=== PATIENT | male | born 1945 | race African-American/Black ===

== ENCOUNTER 2017-12-29 19:38 | Emergency (ER) | payer MEDICARE ==
[~2017-12-29] VITALS: Ht 190.5 cm; Wt 97.5 kg
[~2017-12-29 19:38] MED LIST: ALBUTEROL2.5 MG/3 M HHN; AMICAR500 MG PO; ASPIR-LOW81 MG ORAL; DOXYCYCLINE MO100 MG ORAL; DULERA 100 MCG/13 GM INH; GENVOYA TABLET1 EACH PO; HYDROCODON-ACE1 EA15 ORAL; KEFLEX500 MG ORAL; MECLIZINE HCL25 MG ORAL; NORCO 5-325 TA1 EACH ORAL; STRIBILD TABLE1 EACH PO; SYMBICORT 16010.2 G1 IH; VENTOLIN HFA18 GM INH
[2017-12-29] MEDS ORDERED: Sodium Chloride 500ML 500 ML IV ONE (20:07)
[2017-12-29 20:10] VITALS: BP 155/102
[2017-12-29] MEDS ORDERED: Meclizine 25mg tab ORAL ONE (20:15)
[2017-12-29 20:58] LABS: BASOPHILS % (AUTO) 1.6 % (0.0-2.0); EOSINOPHILS % (AUTO) 1.3 % (0.0-3.0); HEMATOCRIT 40.6 % (42.0-52.0); HEMOGLOBIN 13.8 G/DL (14.2-18.0); LYMPHOCYTES % (AUTO) 30.6 % (20.0-45.0); MEAN CORPUSCULAR VOLUME 87 FL (80-99); MONOCYTES % (AUTO) 15.2 % (1.0-10.0); NEUTROPHILS % (AUTO) 51.4 % (45.0-75.0); PLATELET COUNT 213 K/UL (150-450); RED BLOOD COUNT 4.67 M/UL (4.70-6.10); RED CELL DISTRIBUTION WIDTH 13.4 % (11.6-14.8); WHITE BLOOD COUNT 4.6 K/UL (4.8-10.8)
[2017-12-29 21:03] LABS: ANION GAP 3 mmol/L (5-15); BLOOD UREA NITROGEN 13 mg/dL (7-18); CALCIUM 9.1 MG/DL (8.5-10.1); CARBON DIOXIDE 35 MMOL/L (21-32); CHLORIDE 101 MMOL/L (98-107); CREATININE 1.1 MG/DL (0.55-1.30); POTASSIUM 3.5 MMOL/L (3.5-5.1); SODIUM 139 MMOL/L (136-145)
--- NOTE | 2017-12-29 21:10 | Diagnostic Imaging Report ---
EXAM: XR Chest, 1 View CLINICAL HISTORY: DIZZY TECHNIQUE: Frontal view of the chest. COMPARISON: No relevant prior studies available. FINDINGS: Lungs: Probable mild atelectasis at the lung bases. Nodules which are likely calcified are projected in the lungs. Pleural space: No plain film evidence for pneumothorax. The costophrenic angles are sharp. Heart: Unremarkable. No cardiomegaly. Mediastinum: Unremarkable. Bones/joints: Unremarkable. IMPRESSION: Probable mild atelectasis at the lung bases.
[2017-12-29 21:18] LABS: ALANINE AMINOTRANSFERASE 32 U/L (12-78); ALBUMIN 3.4 G/DL (3.4-5.0); ALBUMIN/GLOBULIN RATIO 0.9 (1.0-2.7); ALKALINE PHOSPHATASE 43 U/L (46-116); ASPARTATE AMINO TRANSFERASE 21 U/L (15-37); BILIRUBIN,TOTAL 0.4 MG/DL (0.2-1.0); CKMB 2.3 NG/ML (0.0-3.6); CREATINE KINASE 178 U/L (26-308)
--- NOTE | 2017-12-29 22:04 | Diagnostic Imaging Report ---
EXAM: CT Head Without Intravenous Contrast CLINICAL HISTORY: DIZZY, vertigo TECHNIQUE: Axial computed tomography images of the head/brain without intravenous contrast. CTDI is 0.15, 70.38 mGy and DLP is 1379 mGy-cm. One or more of the following dose reduction techniques were used: automated exposure control, adjustment of the mA and/or kV according to patient size, use of iterative reconstruction technique. COMPARISON: No relevant prior studies available. FINDINGS: Brain: Areas of decreased density in the periventricular white matter which are nonspecific but are likely related to small vessel ischemic changes. Cerebral atrophy. No hemorrhage. Ventricles: Unremarkable. No ventriculomegaly. Bones/joints: Unremarkable. No acute fracture. Soft tissues: Unremarkable. Sinuses: Focal areas of mild mucosal thickening in the paranasal sinuses. Mastoid air cells: Unremarkable as visualized. No mastoid effusion. IMPRESSION: No CT evidence for acute intracranial abnormality. Cerebral atrophy with probable small vessel ischemic changes in the periventricular white matter.
[2017-12-29] MEDS ORDERED: MECLIZINE HCL25 MG ORAL (22:18)
[2017-12-29] MEDS ORDERED: ONDANSETRON ODT4 MG BC (22:18)
[2017-12-29 22:20] VITALS: BP 148/97
--- NOTE | 2017-12-29 22:20 | Emergency Room Report ---
History of Present Illness General Chief Complaint: Hypertension Source: Patient Present Illness HPI 72-year-old male presents ED for evaluation. Patient complaining of dizziness with high blood pressure 1 day. States he feels room spinning sensation. Denies any photophobia or blurry vision. states vomiting 1. Denies any headache. Denies any chest pain or shortness of breath. States he is compliant with his blood pressure medications. Computer Hardware Developer is Dr. Wilks. No other aggravating or relieving factors. Denies any other associated symptoms Allergies: Coded Allergies: No Known Allergies (Unverified , 09/11/17) Patient History Past Medical History: HTN Past Surgical History: none Pertinent Family History: none Social History: Denies: smoking, alcohol use, drug use Immunizations: UTD Reviewed Nursing Documentation: PMH: Agreed; PSxH: Agreed Nursing Documentation-PMH Past Medical History: No History, Except For Hx Cardiac Problems: No - HIV+ Hx Hypertension: Yes Hx Asthma: Yes - Bronchitis Review of Systems All Other Systems: negative except mentioned in HPI Physical Exam Vital Signs Date Time Temp Pulse Resp B/P (MAP) Pulse Ox O2 Delivery O2 Flow Rate FiO2 12/29/17 19:42 98.2 84 16 155/102 97 Room Air 98.2 Sp02 EP Interpretation: reviewed, normal General Appearance: no apparent distress, alert, GCS 15, non-toxic Head: normocephalic, atraumatic Eyes: bilateral eye normal inspection, bilateral eye PERRL ENT: hearing grossly normal, normal pharynx, no angioedema, normal voice Neck: full range of motion, supple/symm/no masses Respiratory: chest non-tender, lungs clear, normal breath sounds, speaking full sentences Cardiovascular #1: regular rate, rhythm, no edema Cardiovascular #2: 2+ carotid (R), 2+ carotid (L), 2+ radial (R), 2+ radial (L) , 2+ dorsalis pedis (R), 2+ dorsalis pedis (L) Gastrointestinal: normal bowel sounds, non tender, soft, non-distended, no guarding, no rebound Rectal: deferred Genitourinary: normal inspection, no CVA tenderness Musculoskeletal: back normal, gait/station normal, normal range of motion, non- tender Neurologic: alert, oriented x3, responsive, casino attendant III-XII nml as tested, motor strength/tone normal, sensory intact, cerebellar normal, normal gait, speech normal Psychiatric: judgement/insight normal, memory normal, mood/affect normal, no suicidal/homicidal ideation Reflexes: 3+ bicep (R), 3+ bicep (L), 3+ tricep (R), 3+ tricep (L), 3+ knee (R) , 3+ knee (L) Skin: normal color, no rash, warm/dry, well hydrated Lymphatic: no adenopathy Medical Decision Making Diagnostic Impression: Primary Impression: Vertigo Additional Impression: Hypertension Qualified Codes: I10 - Essential (primary) hypertension ER Course Hospital Course 72-year-old male presents ED complaining of dizziness, blood pressure elevated Differential diagnoses include: arrythmia, dehydration, intracranial bleed, seizure Clinical course Patient placed on stretcher. on satellite project site monitor. After initial history and physical I ordered labs, EKG, chest Xray, IVFs, CT Brain, meclizine, zofran labs reviewed- no leukocytosis, Hb/Hct stable, electrolytes ok, troponins negative CT Brain - unremarkable Chest x-ray- no acute process EKG - NSR, no acute ischemic changes interpreted by me On reassessment patient feels better. Symptoms resolved. Discussed findings with Dr. Wilks. UA negative workup he agrees the patient can be safely discharged to home and he will see patient in his office on Sunday and agrees with plan I. I feel this is a highly complex case requiring extensive working including EKG/Rhythm strip, Xray/CT/US, Blood/urine lab work, repeat exams while in ED, and administration of strong opiates/narcotics for pain control, admission to hospital or close patient follow up. Diagnosis - vertigo, hypertension Stable and discharged to home with Rx meclizine, zofran. Followup with PMD. Return to ED if symptoms recur or worsen Labs Test 12/29/17 20:15 White Blood Count 4.6 K/UL (4.8-10.8) Red Blood Count 4.67 M/UL (4.70-6.10) Hemoglobin 13.8 G/DL (14.2-18.0) Hematocrit 40.6 % (42.0-52.0) Mean Corpuscular Volume 87 FL (80-99) Mean Corpuscular Hemoglobin 29.5 PG (27.0-31.0) Mean Corpuscular Hemoglobin Concent 33.9 G/DL (32.0-36.0) Red Cell Distribution Width 13.4 % (11.6-14.8) Platelet Count 213 K/UL (150-450) Mean Platelet Volume 7.1 FL (6.5-10.1) Neutrophils (%) (Auto) 51.4 % (45.0-75.0) Lymphocytes (%) (Auto) 30.6 % (20.0-45.0) Monocytes (%) (Auto) 15.2 % (1.0-10.0) Eosinophils (%) (Auto) 1.3 % (0.0-3.0) Basophils (%) (Auto) 1.6 % (0.0-2.0) Sodium Level 139 MMOL/L (136-145) Potassium Level 3.5 MMOL/L (3.5-5.1) Chloride Level 101 MMOL/L (98-107) Carbon Dioxide Level 35 MMOL/L (21-32) Anion Gap 3 mmol/L (5-15) Blood Urea Nitrogen 13 mg/dL (7-18) Creatinine 1.1 MG/DL (0.55-1.30) Estimat Glomerular Filtration Rate mL/min (>60) Glucose Level 100 MG/DL (74-106) Calcium Level 9.1 MG/DL (8.5-10.1) Total Bilirubin 0.4 MG/DL (0.2-1.0) Aspartate Amino Transf (AST/SGOT) 21 U/L (15-37) Alanine Aminotransferase (ALT/SGPT) 32 U/L (12-78) Alkaline Phosphatase 43 U/L (46-116) Total Creatine Kinase 178 U/L (26-308) Creatine Kinase MB 2.3 NG/ML (0.0-3.6) Creatine Kinase MB Relative Index 1.2 Troponin I 0.002 ng/mL (0.000-0.056) Pro-B-Type Natriuretic Peptide 50 pg/mL (0-125) Total Protein 7.1 G/DL (6.4-8.2) Albumin 3.4 G/DL (3.4-5.0) Globulin 3.7 g/dL Albumin/Globulin Ratio 0.9 (1.0-2.7) EKG Diagnostic Results Rate: normal Rhythm: NSR ST Segments: no acute changes ASA given to the pt in ED: No Rhythm Strip Diag. Results EP Interpretation: yes Rhythm: NSR, no PVC's, no ectopy Chest X-Ray Diagnostic Results Chest X-Ray Diagnostic Results : Chest X-Ray Ordered: Yes # of Views/Limited/Complete: 1 View Indication: Other - dizziness EP Interpretation: Yes Interpretation: no consolidation, no effusion, no pneumothorax, no acute cardiopulmonary disease Impression: No acute disease Electronically Signed by: Electronically signed by Russ Peter MD CT/MRI/US Diagnostic Results CT/MRI/US Diagnostic Results : Imaging Test Ordered: CT Head Impression no acute process Last Vital Signs Date Time Temp Pulse Resp B/P (MAP) Pulse Ox O2 Delivery O2 Flow Rate FiO2 12/29/17 20:10 98.2 84 16 155/102 97 Room Air 98.2 Status: improved Disposition: HOME, SELF-CARE Condition: Stable Scripts Ondansetron Odt* (ZOFRAN ODT*) 4 Mg Tab.rapdis 4 MG BC EVERY 6 HOURS PRN for Nausea & Vomiting, #20 TAB 0 Refills Prov: Russ Peter MD 12/29/17 Meclizine Hcl* (MECLIZINE*) 25 Mg Tablet 25 MG ORAL THREE TIMES A DAY, #20 TAB Prov: Russ Peter MD 12/29/17 Patient Instructions: Vertigo, [id number] Additional Instructions: followup with Dr Wilks in his office Sunday (12/31/17) between 1-2pm Russ Peter MD Dec 29, 2017 22:20
[2017-12-29 22:25] VITALS: BP 148/97
--- NOTE | 2017-12-30 16:43 | Cardiology Report ---
APPROVED REPORT EKG Measurement Heart [id number] Normal sinus rhythm Left axis deviation Left ventricular hypertrophy with QRS widening Junctional ST depression, probably normal Abnormal ECG
== END 2017-12-29 22:31 | disposition home or self-care (01) ==
LOC: EMR 20:15 → EDBD 20:15 → EMR 22:31
DX: R42 Dizziness and giddiness (principal); I10 Essential (primary) hypertension
CPT/HCPCS: 36415; 70450; 71045; 80053; 82550; 82553; 83880; 84484; 85025; 93005; 96374; 96375; 99284

== ENCOUNTER 2018-03-18 12:40 | Inpatient (IN) | payer MEDICARE ==
[~2018-03-18] VITALS: Ht 188 cm; Wt 120.7 kg
[~2018-03-18 12:40] MED LIST changes: +ONDANSETRON ODT4 MG BC
[2018-03-18] MEDS ORDERED: Sodium Chloride 500ML 500 ML IV ONE (13:06)
[2018-03-18 13:10] VITALS: BP 136/84
[2018-03-18] MEDS ORDERED: Solu-MEDROL 125mg Inj IVP ONE (13:15)
[2018-03-18] MEDS: Albuterol ud Inhalation HHN SCH ×3 (13:25→13:47)
[2018-03-18] MEDS: Ipratropium 0.02% Inh Soln 2.5ml UD HHN SCH ×3 (13:25→13:47)
[2018-03-18 13:49] LABS: BASOPHILS % (AUTO) 0.7 % (0.0-2.0); EOSINOPHILS % (AUTO) 0.4 % (0.0-3.0); HEMATOCRIT 33.4 % (42.0-52.0); HEMOGLOBIN 11.2 G/DL (14.2-18.0); LYMPHOCYTES % (AUTO) 6.7 % (20.0-45.0); MEAN CORPUSCULAR VOLUME 90 FL (80-99); MONOCYTES % (AUTO) 11.9 % (1.0-10.0); NEUTROPHILS % (AUTO) 80.3 % (45.0-75.0); PLATELET COUNT 171 K/UL (150-450); RED BLOOD COUNT 3.73 M/UL (4.70-6.10); RED CELL DISTRIBUTION WIDTH 13.6 % (11.6-14.8)
[2018-03-18 13:56] LABS: ANION GAP 7 mmol/L (5-15); BLOOD UREA NITROGEN 17 mg/dL (7-18); CALCIUM 8.8 MG/DL (8.5-10.1); CARBON DIOXIDE 28 MMOL/L (21-32); CHLORIDE 104 MMOL/L (98-107); CREATININE 1.5 MG/DL (0.55-1.30); POTASSIUM 4.2 MMOL/L (3.5-5.1); SODIUM 139 MMOL/L (136-145)
[2018-03-18 14:06] LABS: ALANINE AMINOTRANSFERASE 23 U/L (12-78); ALBUMIN 2.2 G/DL (3.4-5.0); ALBUMIN/GLOBULIN RATIO 0.5 (1.0-2.7); ALKALINE PHOSPHATASE 51 U/L (46-116); ASPARTATE AMINO TRANSFERASE 21 U/L (15-37); BILIRUBIN,TOTAL 0.5 MG/DL (0.2-1.0)
[2018-03-18] MEDS ORDERED: cefTRIAXone 1 GM in NS 55 ML IV SCH (14:30)
[2018-03-18] MEDS ORDERED: Azithromycin 500 MG in NS 275 ML IV SCH (14:30)
[2018-03-18] MEDS ORDERED: LOSARTAN POTASS50 MG ORAL (14:31)
[2018-03-18] MEDS ORDERED: PANTOPRAZOLE SO40 MG ORAL (14:31)
[2018-03-18] MEDS ORDERED: ELIQUIS5 MG PO (14:31)
[2018-03-18] MEDS ORDERED: TERBINAFINE HC250 MG PO (14:33)
[2018-03-18] MEDS ORDERED: ZANTAC150 MG ORAL ×2 (14:33→17:36)
[2018-03-18] MEDS ORDERED: GENVOYA TABLET1 EACH PO (14:33)
--- NOTE | 2018-03-18 14:39 | Diagnostic Imaging Report ---
Indication: Chest pain Technique: One view of the chest Comparison: 12/29/2017 Findings: Interim development of reticular infiltrate at the left lung base. The right lung, bilateral pleural spaces are clear. Extensive scattered calcified nodules are seen throughout both lungs. The heart size is upper limits of normal. Impression: Left basilar reticular infiltrate, likely pneumonia Evidence old granulomatous disease
[2018-03-18 15:46] LABS: APPEARANCE,URINE CLEAR; BILIRUBIN, URINE NEGATIVE (NEGATIVE); GLUCOSE, URINE (UA) NEGATIVE (NEGATIVE); KETONES,URINE NEGATIVE (NEGATIVE); LEUKOCYTE ESTERASE ,URINE 1+ (NEGATIVE); NITRITE,URINE NEGATIVE (NEGATIVE); PH,URINE 6 (4.5-8.0); PROTEIN,URINE 3+ (NEGATIVE); UROBILINOGEN,URINE 4 MG/DL (0.0-1.0)
[2018-03-18 15:47] LABS: COLOR,URINE YELLOW
--- NOTE | 2018-03-18 16:49 | Emergency Room Report ---
History of Present Illness General Chief Complaint: Dyspnea/Respdistress Source: Patient, Medical Record Present Illness HPI 73-year-old male presents ED complaining of shortness of breath 5 days. Notes cough and wheezing. History of asthma. Cough is productive with yellowish phlegm. Denies fevers or chills. Denies chest pain. Patient also states his blood pressure has been high recently. Systolic in the 190s. History of hypertension and states he is compliant with his medications. Referred by Dr. Wilks to ER for evaluation. And ice headache blurry vision nausea or vomiting. No other aggravating relieving factors. Denies any other associated symptoms Allergies: Coded Allergies: No Known Allergies (Unverified , 09/11/17) Patient History Past Medical History: HTN, asthma Past Surgical History: none Pertinent Family History: none Social History: Denies: smoking, alcohol use, drug use Immunizations: UTD Reviewed Nursing Documentation: PMH: Agreed; PSxH: Agreed Nursing Documentation-PMH Past Medical History: No History, Except For Hx Cardiac Problems: No - HIV+ Hx Hypertension: Yes Hx Asthma: Yes - Bronchitis Review of Systems All Other Systems: negative except mentioned in HPI Physical Exam Vital Signs Date Time Temp Pulse Resp B/P (MAP) Pulse Ox O2 Delivery O2 Flow Rate FiO2 03/18/18 12:47 98.5 108 24 152/85 90 Room Air 98.4 03/18/18 13:25 21 Sp02 EP Interpretation: reviewed, normal General Appearance: no apparent distress, alert, GCS 15, non-toxic Head: normocephalic, atraumatic Eyes: bilateral eye normal inspection, bilateral eye PERRL ENT: hearing grossly normal, normal pharynx, no angioedema, normal voice Neck: full range of motion, supple/symm/no masses Respiratory: chest non-tender, accessory muscle use, speaking full sentences, wheezing Cardiovascular #1: regular rate, rhythm, no edema Cardiovascular #2: 2+ carotid (R), 2+ carotid (L), 2+ radial (R), 2+ radial (L) , 2+ dorsalis pedis (R), 2+ dorsalis pedis (L) Gastrointestinal: normal bowel sounds, non tender, soft, non-distended, no guarding, no rebound Rectal: deferred Genitourinary: normal inspection, no CVA tenderness Musculoskeletal: back normal, gait/station normal, normal range of motion, non- tender Neurologic: alert, oriented x3, responsive, motor strength/tone normal, sensory intact, speech normal Psychiatric: judgement/insight normal, memory normal, mood/affect normal, no suicidal/homicidal ideation Reflexes: 3+ bicep (R), 3+ bicep (L), 3+ tricep (R), 3+ tricep (L), 3+ knee (R) , 3+ knee (L) Skin: normal color, no rash, warm/dry, well hydrated Lymphatic: no adenopathy Medical Decision Making Diagnostic Impression: Primary Impression: Pneumonia Qualified Codes: J18.1 - Lobar pneumonia, unspecified organism Additional Impression: Hypertension Qualified Codes: I10 - Essential (primary) hypertension ER Course Hospital Course 73 yo M presents to ED c/o SOB. BP high Differential diagnoses include: Pneumonia, CHF exacerbation, pneumothorax, fluid overload Clinical course Patient placed on stretcher. On court recording monitor. After initial history and physical, I ordered nebulizer treatments. I ordered labs, IV fluids, EKG, chest x-ray, blood cultures, UA. Labs -no leukocytosis noted, hemoglobin/hematocrit stable, electrolytes okay, lactate okay troponins negative CXR - LLL infiltrate EKG - NSR, no acute ischemic changes interpreted by me antibiotics given. BP in the 150s systolic now. No indication for emergent treatment Case discussed with Dr. Wilks and he agreed to the patient to his service for further care and support I feel this is a highly complex case requiring extensive working including EKG/ Rhythm strip, Xray/CT/US, Blood/urine lab work, repeat exams while in ED, and administration of strong opiates/narcotics for pain control, admission to hospital or close patient follow up. Diagnosis - pneumonia, hypertension Patient admitted to floor in serious condition Labs Test 03/18/18 13:20 03/18/18 14:30 03/18/18 15:35 White Blood Count 9.0 K/UL (4.8-10.8) Red Blood Count 3.73 M/UL (4.70-6.10) Hemoglobin 11.2 G/DL (14.2-18.0) Hematocrit 33.4 % (42.0-52.0) Mean Corpuscular Volume 90 FL (80-99) Mean Corpuscular Hemoglobin 29.9 PG (27.0-31.0) Mean Corpuscular Hemoglobin Concent 33.4 G/DL (32.0-36.0) Red Cell Distribution Width 13.6 % (11.6-14.8) Platelet Count 171 K/UL (150-450) Mean Platelet Volume 7.5 FL (6.5-10.1) Neutrophils (%) (Auto) 80.3 % (45.0-75.0) Lymphocytes (%) (Auto) 6.7 % (20.0-45.0) Monocytes (%) (Auto) 11.9 % (1.0-10.0) Eosinophils (%) (Auto) 0.4 % (0.0-3.0) Basophils (%) (Auto) 0.7 % (0.0-2.0) Sodium Level 139 MMOL/L (136-145) Potassium Level 4.2 MMOL/L (3.5-5.1) Chloride Level 104 MMOL/L (98-107) Carbon Dioxide Level 28 MMOL/L (21-32) Anion Gap 7 mmol/L (5-15) Blood Urea Nitrogen 17 mg/dL (7-18) Creatinine 1.5 MG/DL (0.55-1.30) Estimat Glomerular Filtration Rate mL/min (>60) Glucose Level 108 MG/DL (74-106) Calcium Level 8.8 MG/DL (8.5-10.1) Total Bilirubin 0.5 MG/DL (0.2-1.0) Aspartate Amino Transf (AST/SGOT) 21 U/L (15-37) Alanine Aminotransferase (ALT/SGPT) 23 U/L (12-78) Alkaline Phosphatase 51 U/L (46-116) Troponin I 0.000 ng/mL (0.000-0.056) Pro-B-Type Natriuretic Peptide 369 pg/mL (0-125) Total Protein 6.5 G/DL (6.4-8.2) Albumin 2.2 G/DL (3.4-5.0) Globulin 4.3 g/dL Albumin/Globulin Ratio 0.5 (1.0-2.7) Lactic Acid Level 1.50 mmol/L (0.4-2.0) Urine Color Yellow Urine Appearance Clear Urine pH 6 (4.5-8.0) Urine Specific [place] 1.010 (1.005-1.035) Urine Protein 3+ (NEGATIVE) Urine Glucose (UA) Negative (NEGATIVE) Urine Ketones Negative (NEGATIVE) Urine Occult Blood 4+ (NEGATIVE) Urine Nitrite Negative (NEGATIVE) Urine Bilirubin Negative (NEGATIVE) Urine Urobilinogen 4 MG/DL (0.0-1.0) Urine Leukocyte Esterase 1+ (NEGATIVE) Urine RBC 2-4 /HPF (0 - 0) Urine WBC 0-2 /HPF (0 - 0) Urine Squamous Epithelial Cells None /LPF (NONE/OCC) Urine Bacteria Few /HPF (NONE) EKG Diagnostic Results Rate: normal Rhythm: NSR ST Segments: no acute changes ASA given to the pt in ED: No Rhythm Strip Diag. Results EP Interpretation: yes Rhythm: NSR, no PVC's, no ectopy Chest X-Ray Diagnostic Results Chest X-Ray Diagnostic Results : Chest X-Ray Ordered: Yes # of Views/Limited/Complete: 1 View Indication: Shortness of Breath EP Interpretation: Yes Interpretation: no pneumothorax, no acute cardiopulmonary disease, other - LLL infiltrate Impression: Other - LLL infiltrate Electronically Signed by: Electronically signed by Russ Peter MD Last Vital Signs Date Time Temp Pulse Resp B/P (MAP) Pulse Ox O2 Delivery O2 Flow Rate FiO2 03/18/18 14:13 106 20 100 Room Air 21 03/18/18 13:10 136/84 03/18/18 12:47 98.5 98.4 Status: improved Disposition: ADMITTED INPATIENT Condition: Serious Referrals: Sarmad Wilks MD (PCP) Russ Peter MD Mar 18, 2018 16:49
[2018-03-18] MEDS ORDERED: ALBUTEROL SULF8.5 GM INH (17:27)
[2018-03-18] MEDS ORDERED: CIPROFLOXACIN500 M2 ORAL (17:29)
[2018-03-18] MEDS ORDERED: ACETAMINOPHEN325 M1 ORAL (17:32)
[2018-03-18] MEDS ORDERED: FLONASE1 SPRAYS NASAL (17:32)
[2018-03-18] MEDS ORDERED: LATANOPROST2.5 ML BOTH EYES (17:32)
[2018-03-18] MEDS ORDERED: SYMBICORT 16010.2 G1 IH (17:33)
[2018-03-18] MEDS ORDERED: LOSARTAN POTAS100 MG ORAL (17:35)
[2018-03-18 17:54] VITALS: BP 154/87
[2018-03-18 19:41] VITALS: BP 144/92
[2018-03-18] MEDS ORDERED: HydrALAZINE 25mg tab ORAL PRN (21:33)
[2018-03-18] MEDS: Eliquis 2.5mg tablet ORAL SCH (22:08)
[2018-03-18] MEDS: Losartan 50mg tab ORAL SCH (22:08)
[2018-03-18] MEDS: Latanoprost 0.005% Opth 2.5ml Soln BOTH EYES SCH (22:18)
[2018-03-18] MEDS: Flonase Nasal Inhaler 16gm NASAL SCH (22:19)
--- NOTE | 2018-03-18 22:45 | Consultation ---
DATE OF CONSULTATION: 03/18/2018 CARDIOLOGY CONSULTATION CONSULTING PHYSICIAN: Sarmad Wilks M.D. REASON FOR CONSULTATION: Shortness of breath in the setting of hypercoagulable state and malignant range hypertension. HISTORY: This 73-year-old male, who started feeling ill on 03/14/2016 when he was noted to have fevers and was disoriented according to family members. He apparently had night sweats as well the night before and diarrhea. He attributed all this to something he ate and did not agreed to seek medical attention despite insistence from family members. His confusion subsided and the next day he continued to feel weak with some fevers, but no recurring confusion and resolution of his diarrhea was noted. Today, he saw his ENT doctor for routine visit and was noted to have a severely elevated blood pressure of almost 190 systolic as well as fevers and congestion and was referred to the emergency room. He has had cough with yellow sputum production and some shortness of breath with exertion, but not at rest. He has noted a fast heart beat at times. He has not had any more diarrhea as noted and has had not any recurrent episodes of confusion. He still has had night sweats during these past few days however and a headache, but no visual disturbance. PAST MEDICAL HISTORY: HIV positive, bronchospastic lung disease, hypertensive heart disease, and hypercoagulable state with history of recurring DVT on chronic anticoagulation now. MEDICATIONS: Prior to admission, reviewed and reconciled. Good compliance with medications and dietary restrictions. ALLERGIES: None known. FAMILY HISTORY: Noncontributory. SOCIAL HISTORY: No active smoking, alcohol, or substance abuse. REVIEW OF SYSTEMS: A 10-point review of systems performed. All systems negative other than noted above. As an outpatient, he has had some episodes of labile blood pressure, but more recently has had good blood pressure control. He has not tolerated amlodipine due to leg swelling. He had an exercise echocardiogram at my office in the last six months that was negative for any signs of flow-limiting coronary disease and his baseline echocardiogram reveals normal ejection fraction with concentric hypertrophy and a diastolic relaxation abnormality. His HIV status has been most recently notable for an undetectable state with regard to viral load. He has not had any opportunistic infection. All other systems were unremarkable and negative. PHYSICAL EXAMINATION: GENERAL: Appears site slightly ill. VITAL SIGNS: Blood pressure 152/85, pulse 108, respiratory rate 24, temperature 98.5 degrees, and oxygen saturation 90% on room air. HEENT: He is congested and . Oropharynx clear with no thrush. NECK: Supple with no adenopathy. LUNGS: With few rhonchi at the right. CARDIAC: Regular rhythm and rate. Normal S1 and S2 with a fourth heart sound. ABDOMEN: Soft, nontender. EXTREMITIES: Good pulses. No edema, calf tenderness or cords. NEUROLOGIC: Nonfocal, speech fluent and cognition is without deficit. LABORATORY AND DIAGNOSTIC DATA: Chest x-rays notable for right basilar infiltrate. White count 9 and hemoglobin 11.2. Sodium 139, potassium 4.2, bicarbonate 28, BUN 17, and creatinine 1.5. Lactate is 1.5. Troponin negative. Pro-natriuretic peptide 369 and albumin 2.2. IMPRESSION: 1. Pneumonia. 2. Hypoxia. 3. Hypertensive urgency. 4. HIV positive. 5. Severe protein-calorie malnutrition. 6. Hypercoagulable state, on chronic therapy with Eliquis. PLAN: Panculture. Nasal oxygen. Broad-spectrum antibiotics. Sputum cultures. Continue full anticoagulation. Titrate antihypertensives. Antipyretics. Antitussives. bronchodilator therapy. Follow up chest radiograph. Consideration for V/Q scan should there be any consideration for pulmonary embolic event. Sarmad Wilks M.D. DR: AUBREY JOB#: [id number] CC:
[2018-03-18] MEDS ORDERED: Albuterol/Ipratropium 3ml neb HHN SCH (23:00)
[2018-03-18] MEDS: Albuterol/Ipratropium 3ml neb HHN SCH (23:06)
[2018-03-19] VITALS (7 sets, daily range): BP systolic 140–163; BP diastolic 89–100
[2018-03-19] MEDS: Albuterol/Ipratropium 3ml neb HHN SCH ×6 (03:53→23:08)
[2018-03-19 06:33] LABS: HEMATOCRIT 33.5 % (42.0-52.0); HEMOGLOBIN 10.9 G/DL (14.2-18.0); MEAN CORPUSCULAR VOLUME 89 FL (80-99); PLATELET COUNT 181 K/UL (150-450); RED BLOOD COUNT 3.75 M/UL (4.70-6.10); RED CELL DISTRIBUTION WIDTH 13.7 % (11.6-14.8); WHITE BLOOD COUNT 5.9 K/UL (4.8-10.8)
[2018-03-19 07:07] LABS: ALANINE AMINOTRANSFERASE 23 U/L (12-78); ALBUMIN 2.1 G/DL (3.4-5.0); ALBUMIN/GLOBULIN RATIO 0.5 (1.0-2.7); ALKALINE PHOSPHATASE 52 U/L (46-116); ANION GAP 10 mmol/L (5-15); ASPARTATE AMINO TRANSFERASE 17 U/L (15-37); BILIRUBIN,TOTAL 0.3 MG/DL (0.2-1.0); BLOOD UREA NITROGEN 20 mg/dL (7-18); CALCIUM 8.9 MG/DL (8.5-10.1); CARBON DIOXIDE 24 MMOL/L (21-32); CHLORIDE 104 MMOL/L (98-107); CREATININE 1.3 MG/DL (0.55-1.30); POTASSIUM 3.9 MMOL/L (3.5-5.1); SODIUM 138 MMOL/L (136-145)
[2018-03-19] MEDS: GENVOYA ORAL SCH (08:40)
[2018-03-19] MEDS: Eliquis 2.5mg tablet ORAL SCH ×2 (08:41→20:47)
[2018-03-19] MEDS: Losartan 50mg tab ORAL SCH (08:41)
[2018-03-19] MEDS: Flonase Nasal Inhaler 16gm NASAL SCH ×2 (08:42→17:09)
[2018-03-19] MEDS ORDERED: Losartan 50mg tab ORAL SCH (09:00)
--- NOTE | 2018-03-19 12:15 | History and Physical Report ---
DATE OF ADMISSION: 03/18/2018 CHIEF COMPLAINT: Shortness of breath, possible pneumonia. HISTORY OF PRESENT ILLNESS: The patient is a pleasant 73-year-old male. He has a history of hypertensive heart disease, HIV, asthma/COPD, hypercoagulable state on chronic anticoagulation. He presented to the emergency room with complaints of generalized malaise, weakness, dizziness, diarrhea, and night sweats. According to the patient, a week ago, he developed severe diarrhea with drenching night sweats. He saw his lehr loader on the day of admission, was noted to be short of breath, hypertensive, dizzy, and weak. He was sent to the emergency room. On evaluation there, he had x-ray evidence of left lower lobe infiltrate. Broad-spectrum IV antibiotics have been instituted. The patient has been pancultured and is now admitted for further evaluation and care. PAST MEDICAL HISTORY: As above. PAST SURGICAL HISTORY: None. CURRENT MEDICATIONS: Reconciled and reviewed. ALLERGIES: None. FAMILY HISTORY: None. SOCIAL HISTORY: Negative for tobacco, ethanol, or drugs. REVIEW OF SYSTEMS: GENERAL: No fever or chills. Positive night sweats. HEENT: No headaches or visual changes. CARDIOPULMONARY: No chest pain. No shortness of breath. Mild cough. GASTROINTESTINAL: No nausea or vomiting. GENITOURINARY: No urgency or frequency. MUSCULOSKELETAL: No joint pain or swelling. NEUROLOGIC: No previous history of seizures. PHYSICAL EXAMINATION: VITAL SIGNS: Temperature was 97.5, pulse 95, respirations 18, and blood pressure 155/94. GENERAL: The patient is well-developed male, in no apparent distress. HEART: Regular rate and rhythm. LUNGS: Clear anteriorly. ABDOMEN: Soft, nontender, and nondistended. EXTREMITIES: Without clubbing, cyanosis, or edema. LABORATORY DATA: Labs showed white count of 9, hemoglobin 11, hematocrit 34, and platelet count 171. Sodium 139 and creatinine was . Natriuretic peptide level was 369. Troponin was negative. UA was clear. Chest x-ray showed left-sided infiltrate. ASSESSMENT: This is a pleasant male with complaints of fevers and night sweats secondary to pneumonia. PROBLEM LIST: 1. Pneumonia. 2. Rule out gastroenteritis. 3. HIV. 4. Hypertensive heart disease. PLAN: IV antibiotics. Follow up cultures. Gentle hydration. Cardiology and Infectious Disease consultations to be obtained. We will monitor for recurrent diarrhea. Consider stool cultures if the patient has persistent diarrhea while in house. Mirza Willis M.D. DR: NITA JOB#: [id number] CC:
[2018-03-19] MEDS: Azithromycin 500 MG in D5W 275 ML IV SCH (15:38)
--- NOTE | 2018-03-19 16:30 | Consultation ---
DATE OF CONSULTATION: 03/19/2018 INFECTIOUS DISEASES CONSULTATION CONSULTING PHYSICIAN: Wilmer Padilla M.D. REFERRING PHYSICIAN: Sarmad Wilks M.D. REASON FOR CONSULTATION: Pneumonia. HISTORY OF PRESENTING ILLNESS: This is a 73-year-old gentleman with history of HIV, hypertension, bronchospastic disease, hypercoagulable state with DVT, who came in because he started having sweats along with cough. He had some shortness of breath. He was found to have a pneumonia and an Infectious Diseases consultation has been obtained for antibiotics. PAST MEDICAL HISTORY: 1. History of HIV. 2. History of bronchospastic lung disease. 3. Hypertension. 4. Hypercoagulable state. 5. DVT. MEDICATIONS: As an inpatient, he is on ceftriaxone, azithromycin, Symbicort, Protonix, albuterol, ipratropium, losartan, , Pepcid, Eliquis, hydralazine, Xalatan drops, and Flonase. ALLERGIES: No known drug allergies. SOCIAL HISTORY: He smokes marijuana. He drinks alcohol socially. No history of drug use. FAMILY HISTORY: Noncontributory. REVIEW OF SYSTEMS: RESPIRATORY: No fever or chills. He does have a cough. He has shortness of breath that has improved. CARDIAC: No chest pain. No palpitations. No dizziness. No syncope. GASTROINTESTINAL: No nausea. No vomiting. No abdominal pain. No diarrhea. PHYSICAL EXAMINATION: VITAL SIGNS: Temperature of 97.5, T-max of 99, pulse of 71, respiratory rate of 18, blood pressure 155/94, and O2 saturation of 99%. HEENT: Pupils equally reactive to light and accommodation. Mouth appears clean without thrush. NECK: Supple. No adenopathy. No JVD. CARDIOVASCULAR: Regular rate and rhythm. No murmurs. LUNGS: Clear to auscultation bilaterally. No crackles. No wheezes. ABDOMEN: Soft and nontender. No organomegaly. EXTREMITIES: No cyanosis, no clubbing, no edema. LABORATORY AND DIAGNOSTIC DATA: White count 5.9, hemoglobin 10.9, hematocrit 33.5, MCV 89, platelet count of 181, and neutrophils of 83%. Sodium 138, potassium 3.9, chloride 104, bicarb 24, BUN 20, creatinine 1.3, glucose 195, calcium 8.9. Total bilirubin 0.3. AST 17, ALT 23, and alkaline phosphatase 52. Beta natriuretic peptide 296. Total protein 6.7. Albumin 2.1. UA showing 0 to 2 white cells. Chest x-ray showing left base reticular infiltrate likely pneumonia, evidence of old granulomatous disease. ASSESSMENT: 1. This is a 73-year-old gentleman with history of HIV, who comes in with shortness of breath and cough, was found to have a pneumonia on the left side. 2. History of hypertension. 3. History of HIV. PLAN: 1. Continue ceftriaxone and azithromycin. 2. We will order for sputum for Gram stain and culture. 3. We will order for serum Legionella antibody and mycoplasma serology. 4. We will follow up cultures and adjust antibiotics accordingly. 5. We will order a T-cell count. I would like to thank Dr. Wilks, for this consultation. Wilmer Padilla M.D. DR: RULA JOB#: [id number] CC: Sarmad Wilks M.D.
[2018-03-19] MEDS: cefTRIAXone 1 GM in D5W 55 ML IVPB SCH (17:08)
[2018-03-19] MEDS: Latanoprost 0.005% Opth 2.5ml Soln BOTH EYES SCH (20:47)
[2018-03-20] VITALS (8 sets, daily range): BP systolic 137–170; BP diastolic 85–101
[2018-03-20] MEDS: Albuterol/Ipratropium 3ml neb HHN SCH ×6 (03:34→23:39)
--- NOTE | 2018-03-20 07:58 | General Progress Note ---
Assessment/Plan Problem List: (1) Hypertension ICD Codes: I10 - Essential (primary) hypertension SNOMED: 17892927 Qualifiers: Qualified Codes: I10 - Essential (primary) hypertension (2) ACS (acute coronary syndrome) ICD Codes: I24.9 - Acute ischemic heart disease, unspecified SNOMED: 261049584 (3) Pneumonia ICD Codes: J18.9 - Pneumonia, unspecified organism SNOMED: 637578967 Qualifiers: Qualified Codes: J18.1 - Lobar pneumonia, unspecified organism Status: stable, progressing Assessment/Plan follow up cultures iv abx per id follow up t cell subsets resp rx Subjective ROS Limited/Unobtainable: No Constitutional: Reports: malaise, weakness HEENT: Reports: no symptoms Cardiovascular: Reports: no symptoms Respiratory: Reports: cough Gastrointestinal/Abdominal: Reports: no symptoms Genitourinary: Reports: no symptoms Neurologic/Psychiatric: Reports: no symptoms Endocrine: Reports: excessive sweating Hematologic/Lymphatic: Reports: no symptoms Allergies: Coded Allergies: No Known Allergies (Unverified , 09/11/17) All Systems: reviewed and negative except above Subjective feels a little better today. still with cough. night sweats better. currently on iv abx. cultures pending Objective Last 24 Hour Vital Signs Date Time Temp Pulse Resp B/P (MAP) Pulse Ox O2 Delivery O2 Flow Rate FiO2 03/20/18 05:35 89 149/89 (109) 03/20/18 04:00 97.8 101 20 165/100 (121) 96 97.8 03/20/18 03:35 76 18 98 Room Air 03/20/18 03:34 70 18 96 Room Air 03/20/18 00:00 98.2 85 20 142/90 (107) 100 98.2 03/19/18 23:41 163/88 03/19/18 23:35 98.2 88 20 163/99 (120) 100 98.2 03/19/18 23:09 74 18 98 Room Air 21 03/19/18 23:09 73 18 97 Room Air 21 03/19/18 21:19 Room Air 03/19/18 20:23 72 16 98 Room Air 21 03/19/18 20:14 Room Air 03/19/18 20:14 Room Air 03/19/18 20:14 21 03/19/18 20:13 75 18 96 Room Air 21 03/19/18 20:00 98.0 82 18 140/91 (107) 98 98.0 03/19/18 16:06 98.0 89 17 159/97 (117) 99 98.0 03/19/18 15:26 21 03/19/18 15:26 64 18 99 Room Air 21 03/19/18 15:17 61 18 99 Room Air 21 03/19/18 11:45 98.2 87 18 149/89 (109) 95 98.2 91 03/19/18 11:01 Room Air 21 03/19/18 11:00 21 Room Air 21 03/19/18 10:22 71 18 99 Room Air 21 03/19/18 10:22 21 03/19/18 10:15 73 18 97 Room Air 03/19/18 09:00 Room Air 03/19/18 08:41 155/94 03/19/18 08:23 97.5 95 18 155/94 (114) 95 97.5 91 Intake and Output 03/19/18 03/20/18 19:00 07:00 Intake Total 1200 ml 2510 ml Output Total 1950 ml 950 ml Balance -750 ml 1560 ml Intake Oral 1810 ml IV Total 700 ml Other 1200 ml Output Urine Total 1950 ml 950 ml # Voids 3 8 Height (Feet): 6 Height (Inches): 2.00 Weight (Pounds): 266 General Appearance: WD/WN, alert Neck: supple Cardiovascular: regular rhythm Respiratory/Chest: chest wall non-tender, lungs clear, normal breath sounds, no respiratory distress Abdomen: normal bowel sounds, non tender, soft, no organomegaly Edema: no edema noted Arm (L), no edema noted Arm (R), no edema noted Leg (L), no edema noted Leg (R), no edema noted Pedal (L), no edema noted Pedal (R), no edema noted Generalized Mirza Willis MD Mar 20, 2018 07:58
[2018-03-20] MEDS: dilTIAZem HCl CD 180mg cap ORAL SCH ×2 (08:22→14:11)
[2018-03-20] MEDS: Eliquis 2.5mg tablet ORAL SCH ×2 (08:23→20:25)
[2018-03-20] MEDS: Losartan 50mg tab ORAL SCH (08:23)
[2018-03-20] MEDS: GENVOYA ORAL SCH (08:35)
[2018-03-20] MEDS: Flonase Nasal Inhaler 16gm NASAL SCH ×2 (08:35→17:00)
[2018-03-20] MEDS ORDERED: Metoclopramide 10mg/2ml Inj IVP PRN (09:30)
--- NOTE | 2018-03-20 12:14 | Diagnostic Imaging Report ---
Indication: Cough Technique: 2 views of the chest Comparison: 03/18/2018 Findings: There is been interim marked improvement of previously demonstrated left basilar parenchymal opacity. Some nodularity, atelectasis, and consolidation persists nonetheless. Bilateral granulomatous calcifications are again demonstrated. No new infiltrates. No effusions. Normal heart size Impression: Improved but persistent left lower lobe infiltrate, likely reflects improving pneumonia No new infiltrates Evidence of old granulomatous disease, also previously reported
[2018-03-20] MEDS ORDERED: Milk of Magnesia 30ml Ud ORAL ONE (14:15)
[2018-03-20] MEDS ORDERED: Milk of Magnesia 30ml Ud ORAL PRN (14:15)
[2018-03-20] MEDS: Miralax 17gm pkt ORAL SCH (14:18)
--- NOTE | 2018-03-20 14:40 | Infectious Diseases Prog Note ---
Assessment/Plan Assessment/Plan A; Pneumonia HIV Hypertension P; Continue ceftriaxone & Zithromax Continue ART with Genvoya Subjective ROS Limited/Unobtainable: No Constitutional: Reports: no symptoms, other - doing better Respiratory: Reports: productive cough Cardiovascular: Reports: no symptoms Gastrointestinal/Abdominal: Reports: constipation Genitourinary: Reports: no symptoms Allergies: Coded Allergies: No Known Allergies (Unverified , 09/11/17) Objective Vital Signs Last 24 Hour Vital Signs Date Time Temp Pulse Resp B/P (MAP) Pulse Ox O2 Delivery O2 Flow Rate FiO2 03/20/18 14:11 89 152/95 03/20/18 12:00 98.0 89 20 152/95 (114) 95 98.0 03/20/18 09:26 93 18 21 Room Air 03/20/18 09:00 Room Air 03/20/18 08:23 170/100 03/20/18 08:22 84 18 98 Room Air 03/20/18 08:22 89 170/100 03/20/18 08:13 88 18 95 Room Air 03/20/18 08:00 97.2 89 20 170/100 (123) 92 97.2 03/20/18 05:35 89 149/89 (109) 03/20/18 04:00 97.8 101 20 165/100 (121) 96 97.8 03/20/18 03:35 76 18 98 Room Air 03/20/18 03:34 70 18 96 Room Air 03/20/18 00:00 98.2 85 20 142/90 (107) 100 98.2 03/19/18 23:41 163/88 03/19/18 23:35 98.2 88 20 163/99 (120) 100 98.2 03/19/18 23:09 74 18 98 Room Air 21 03/19/18 23:09 73 18 97 Room Air 21 03/19/18 21:19 Room Air 03/19/18 20:23 72 16 98 Room Air 21 03/19/18 20:14 Room Air 03/19/18 20:14 Room Air 03/19/18 20:14 21 03/19/18 20:13 75 18 96 Room Air 21 03/19/18 20:00 98.0 82 18 140/91 (107) 98 98.0 8/21/18 16:06 98.0 89 17 159/97 (117) 99 98.0 03/19/18 15:26 21 03/19/18 15:26 64 18 99 Room Air 21 03/19/18 15:17 61 18 99 Room Air 21 Height (Feet): 6 Height (Inches): 2.00 Weight (Pounds): 266 General Appearance: no acute distress HEENT: mucous membranes moist Respiratory/Chest: lungs clear Cardiovascular: normal rate Abdomen: soft, non tender Extremities: no edema Neurologic/Psychiatric: alert, oriented x 3, responsive Microbiology Date/Time Source Procedure Growth Status 03/18/18 14:30 Blood Blood Culture - Preliminary NO GROWTH AFTER 24 HOURS Resulted 03/18/18 14:20 Blood Blood Culture - Preliminary NO GROWTH AFTER 24 HOURS Resulted 03/19/18 05:00 Sputum Gram Stain - Final Resulted 03/19/18 05:00 Sputum Sputum Culture Pending Resulted Current Medications Medications (Trade) Dose Ordered Sig/Ronald Route PRN Reason Start Time Stop Time Status Last Admin Dose Admin Albuterol/ Ipratropium (Albuterol/ Ipratropium) 3 ml Q4HRT HHN 03/18/18 23:00 03/23/18 22:59 03/20/18 08:13 Apixaban (Eliquis) 5 mg Q12HR ORAL 03/18/18 21:36 04/17/18 21:35 03/20/18 08:23 Azithromycin 500 mg/Dextrose 275 ml @ 275 mls/hr Q24HRS IV 03/19/18 16:00 03/25/18 16:59 03/19/18 15:38 Bisacodyl (Dulcolax) 10 mg DAILYPRN PRN RECTAL Constipation 03/20/18 14:15 03/20/18 23:59 Budesonide/ Formoterol Fumarate (Symbicort 160/ 4.5) 2 puff TWICE A DAY INH 03/19/18 09:00 04/18/18 08:59 03/20/18 09:26 Ceftriaxone Sodium 1 gm/ Dextrose 55 ml @ 110 mls/hr Q24H IVPB 03/19/18 17:00 03/26/18 16:59 03/19/18 17:08 Diltiazem HCl (Cardizem CD) 180 mg DAILY ORAL 03/20/18 09:00 04/19/18 08:59 03/20/18 14:11 Famotidine (Pepcid) 20 mg DAILY ORAL 03/18/18 21:56 04/17/18 21:55 03/20/18 08:23 Fluticasone Propionate (Flonase) 1 spray TWICE A DAY NASAL 03/18/18 21:15 04/17/18 21:14 03/20/18 08:35 Hydralazine HCl (Apresoline) 25 mg Q6H PRN ORAL SBP above 160 03/18/18 21:33 04/17/18 21:32 03/19/18 23:41 Latanoprost (Xalatan) 1 drop BEDTIME BOTH EYES 03/18/18 21:30 04/17/18 21:29 03/19/18 20:47 Losartan Potassium (Cozaar) 100 mg DAILY ORAL 03/18/18 21:56 04/17/18 21:55 03/20/18 08:23 Magnesium Hydroxide (Mom) 30 ml DAILYPRN PRN ORAL Constipation 03/20/18 14:15 04/19/18 14:14 Metoclopramide HCl (Reglan) 10 mg Q8H PRN IVP Nausea & Vomiting 03/20/18 09:30 04/19/18 09:29 03/20/18 12:28 Pantoprazole (Protonix) 40 mg DAILY ORAL 03/19/18 09:00 04/18/18 08:59 03/20/18 08:22 Patient Own Medication (Patient's Own Med) 1 ea DAILY ORAL 03/19/18 09:00 04/18/18 08:59 03/20/18 08:35 Polyethylene Glycol (Miralax) 17 gm DAILY ORAL 03/20/18 15:00 04/19/18 14:59 03/20/18 14:18 Terbinafine HCl (LamISIL) 250 mg DAILY ORAL 03/18/18 21:56 03/25/18 21:55 03/20/18 08:22 Freeman Badillo MD Mar 20, 2018 14:40
--- NOTE | 2018-03-20 15:02 | Progress Note ---
DATE: 03/19/2018 CARDIOLOGY PROGRESS NOTE SUBJECTIVE: The patient is still with cough and shortness of breath on activity. No chest pain. OBJECTIVE: VITAL SIGNS: Blood pressure is labile up to 163/99, heart rate 88, respiratory rate 20. No fevers. LUNGS: Few rhonchi. HEART: Regular rhythm and rate. Normal S1, S2. ABDOMEN: Soft. EXTREMITIES: No edema. LABORATORY DATA: White count 5.9 and hemoglobin 10.9. Potassium 3.9, sodium , BUN 20, creatinine 1.3. Natriuretic peptide is down to 296. Albumin 2.1. Culture is pending. IMPRESSION: 1. Pneumonia. 2. Hypertensive urgency. 3. Chronic kidney disease. 4. HIV positive. 5. Severe protein-calorie malnutrition. 6. History of recurring DVT and pulmonary embolus. PLAN: 1. Optimize blood pressure control. 2. Discontinue IV fluids. 3. Await sputum cultures. 4. Continue empiric antibiotics. 5. Continue full anticoagulation. 6. Consider 24-hour urine collection. Sarmad Wilks M.D. DR: SHAUN JOB#: [id number] CC:
[2018-03-20] MEDS: Azithromycin 500 MG in D5W 275 ML IV SCH (15:38)
[2018-03-20] MEDS: cefTRIAXone 1 GM in D5W 55 ML IVPB SCH (16:46)
[2018-03-20] MEDS: Latanoprost 0.005% Opth 2.5ml Soln BOTH EYES SCH (20:25)
--- NOTE | 2018-03-20 21:58 | Consultation ---
DATE OF CONSULTATION: 03/20/2018 PODIATRIC CONSULTATION CONSULTING PHYSICIAN: Mary Naranjo D.P.M. REFERRING PHYSICIAN: Mirza Willis M.D. REASON FOR CONSULTATION: Foot pain and swelling. HISTORY OF PRESENT ILLNESS: The patient was recently admitted to [facility] for pneumonia. The patient complaints of mild swelling in both feet. The patient relates that he is currently under oral Lamisil treatment for fungal nails and is in the third month of his course of treatment. The patient states he is tolerating the treatment well and has no side effects, but he has not noticed any improvement to his toe nails. The patient also relates recent history of an ingrown toenail involving the right big toe with recent partial matricectomy that has healed and is no longer causing any pain or discomfort. PAST MEDICAL HISTORY: Significant for vertigo, hypertension, pneumonia, and acute coronary syndrome. MEDICATIONS: Albuterol, ipratropium, Eliquis, azithromycin, Symbicort, ceftriaxone, Cardizem, Pepcid, Flonase, Apresoline, Xalatan, Cozaar, Reglan, Protonix, and Lamisil. ALLERGIES: The patient has no known drug allergies. LOWER EXTREMITY PHYSICAL EXAMINATION: VITAL SIGNS: Blood pressure 170/100, pulse 93, temperature 97.2 degrees, and respirations 18. VASCULAR: His dorsalis pedis and posterior tibial arteries are palpable, 2/4 bilaterally. Capillary refill time is less than three seconds bilaterally. NEUROLOGIC: His light touch sensation and proprioceptive sensation are intact to bilateral feet. MUSCULOSKELETAL: His foot and ankle range of motion is limited, but without pain bilateral feet and ankles. Muscle strength is 5/5 in all four quadrants. There is minimal tenderness to palpation of all digits. DERMATOLOGIC: There is mild pitting edema involving the right greater than left foot and ankle. There are thick dystrophic, incurvated, elongated nails x10 with subungual debris with minimal proximal clearing noted. There is no dry scaly skin, but there is hyperkeratotic lesions with central nuclei to all distal digits and bilateral feet and there are no other pre-ulcerative lesions, abrasions, or hyperkeratotic lesions noted to bilateral feet. IMPRESSION: The patient has pneumonia, onychomycosis, and symptomatic intractable plantar keratomas. PLAN: Review foot and nail care guidelines at length with the patient. The patient consented to and tolerated well mechanical debridement of all ascending nails and lesions, partial thickness with immediate relief noted. Encourage completion of oral Lamisil course and continue to close monitoring. Discussed onychomycotic treatment alternatives. Recommend range of motion, elevation at rest, and continue treatment per Dr. Wilks and Dr. Willis. Thank you, Dr. Willis, for this consultation. Mary Naranjo D.P.M. DR: KRYSTLE JOB#: [id number] CC: ИВАН
[2018-03-21] MEDS: Albuterol/Ipratropium 3ml neb HHN SCH ×6 (03:23→23:27)
[2018-03-21 04:00] VITALS: BP 134/73
--- NOTE | 2018-03-21 04:17 | Consultation ---
DATE OF CONSULTATION: 03/20/2018 NEPHROLOGY CONSULTATION CONSULTING PHYSICIAN: Kurt Vides M.D. REFERRING PHYSICIANS: Mirza Willis M.D. and Sarmad Wilks M.D. REASON FOR CONSULTATION: Proteinuria and mild elevation of creatinine. HISTORY OF PRESENT ILLNESS: The patient is a 73-year-old man with hypertension and HIV, who presents now with some pneumonia, left lower lobe infiltrate. He has HIV for, I believe, 38 years and says that his T-cell count has been around 450 and his viral load is undetectable. He is generally in good health. He has a low albumin and peripheral edema. I am asked to evaluate for the above. PAST SURGICAL HISTORY: None. ALLERGIES: None known. MEDICATIONS: At home include Tylenol, albuterol inhalation, apixaban, Symbicort, Cipro, Genvoya, Flonase, Xalatan eye drops, losartan, Protonix, Zantac, and Lamisil. Other nonsteroidal use, occasional use of Tylenol or aspirin products, but no chronic use of nonsteroidals. HABITS: He is a nonsmoker and nondrinker. He has used marijuana in the past. REVIEW OF SYSTEMS: HEENT: History of glaucoma, stable vision. Hearing is good. ENDOCRINE: No diabetes or thyroid disease. PULMONARY: Some cough as above, improving since hospitalization. No known TB. CARDIAC: No angina or MD. He is on apixaban on double check with Dr. Wilks . GASTROINTESTINAL: No GI bleeding or ulcers. GENITOURINARY: He has a good stream of urine. No dysuria or hematuria. MUSCULOSKELETAL: No chronic joint pains. NEUROLOGIC: No CVA or seizures. PHYSICAL EXAMINATION: GENERAL: The patient is alert man sitting up at the edge of the bed in no acute distress. VITAL SIGNS: Reviewed on the computer, stable. HEENT: Sclerae are nonicteric. Ocular motions intact in all directions. Oral mucosa is moist. NECK: No adenopathy or thyroid enlargement. LUNGS: Clear. HEART: Rhythm is regular. I hear no murmur. ABDOMEN: Soft without organomegaly or masses. EXTREMITIES: Show 1+ edema. PERTINENT LABORATORY DATA: White count 5.9 and hemoglobin is 10.9. Sodium 138, potassium 3.9, chloride 104, CO2 of 24, BUN 20, and creatinine 1.3. Prior creatinine 1.5. Albumin is 2.1. Total protein 6.7. TSH 0.224. IMPRESSION: The patient has proteinuria and a low serum albumin, very likely has significant proteinuria and a 24-hour urine protein collection will be collected. The results after evaluation will be assessed and if he has significant proteinuria, a renal biopsy may be needed to clarify the etiology of his renal disease. He could have nephrotoxicity from one of his HIV medicine, looks less likely as HIV nephropathy. He also could have primary glomerulonephritis, less likely that has myeloma or other systemic disease. PLAN: Studies for myeloma will be ordered and we will check his 24-hour urine for protein. We will await those results before proceeding to possible kidney biopsy. The patient may do well with low-dose diuretics and HODA inhibitors or ARBs. Case was discussed with Dr. Sarmad Wilks. Kurt Vides M.D. DR: HINA JOB#: [id number] CC:
--- NOTE | 2018-03-21 06:15 | Progress Note ---
DATE: 03/20/2018 CARDIOLOGY PROGRESS NOTE SUBJECTIVE: The patient complains of constipation. He notes ankle swelling. He still has cough and congestion. Chest x-ray today revealed improvement in basilar infiltrate on the left. PHYSICAL EXAMINATION: VITAL SIGNS: Afebrile, blood pressure 137/85 to 153/102, heart rate 80, and respiratory rate 18. LUNGS: Coarse breath sounds with rhonchi at the left. CARDIAC: Regular rhythm and rate. Normal S1, S2 with a fourth heart sound. ABDOMEN: Soft. EXTREMITIES: Trace ankle edema. LABORATORY DATA: Cultures remain negative. Pro-natriuretic peptide is 296. Albumin is 2.1. BUN 20 and creatinine 1.3. IMPRESSION: 1. Community-acquired pneumonia. 2. Constipation. 3. HIV positive. 4. Hypertensive urgency. 5. Chronic diastolic congestive heart failure. 6. Severe protein-calorie malnutrition. 7. Chronic kidney disease. PLAN: 1. Bowel regimen. 2. Continue current antimicrobials and respiratory hygiene. 3. Up titrate antihypertensives. 4. A 24-hour urine evaluation. 5. Renal consultation. 6. Protein supplement. Sarmad Wilks M.D. DR: SHAUN JOB#: [id number] CC:
[2018-03-21 08:00] VITALS: BP 133/78
[2018-03-21] MEDS: GENVOYA ORAL SCH (08:25)
[2018-03-21] MEDS: Eliquis 2.5mg tablet ORAL SCH ×2 (08:26→20:36)
[2018-03-21] MEDS: Losartan 50mg tab ORAL SCH (08:26)
[2018-03-21] MEDS: Flonase Nasal Inhaler 16gm NASAL SCH ×2 (08:26→17:28)
[2018-03-21] MEDS: Miralax 17gm pkt ORAL SCH (08:26)
[2018-03-21 08:46] LABS: ALANINE AMINOTRANSFERASE 35 U/L (12-78); ALBUMIN 2.3 G/DL (3.4-5.0); ALBUMIN/GLOBULIN RATIO 0.5 (1.0-2.7); ALKALINE PHOSPHATASE 52 U/L (46-116); ANION GAP 8 mmol/L (5-15); ASPARTATE AMINO TRANSFERASE 25 U/L (15-37); BILIRUBIN,TOTAL 0.2 MG/DL (0.2-1.0); BLOOD UREA NITROGEN 18 mg/dL (7-18); CALCIUM 8.7 MG/DL (8.5-10.1); CARBON DIOXIDE 29 MMOL/L (21-32); CHLORIDE 104 MMOL/L (98-107); CREATININE 1.2 MG/DL (0.55-1.30); POTASSIUM 4.1 MMOL/L (3.5-5.1); SODIUM 141 MMOL/L (136-145)
--- NOTE | 2018-03-21 08:54 | General Progress Note ---
Assessment/Plan Problem List: (1) Hypertension ICD Codes: I10 - Essential (primary) hypertension SNOMED: 93993711 Qualifiers: Qualified Codes: I10 - Essential (primary) hypertension (2) ACS (acute coronary syndrome) ICD Codes: I24.9 - Acute ischemic heart disease, unspecified SNOMED: 805616627 (3) Pneumonia ICD Codes: J18.9 - Pneumonia, unspecified organism SNOMED: 083897610 Qualifiers: Qualified Codes: J18.1 - Lobar pneumonia, unspecified organism Status: stable, progressing Assessment/Plan follow up cultures cxr improving iv abx per id may need picc follow up t cell subsets resp rx Subjective ROS Limited/Unobtainable: No Constitutional: Reports: malaise, weakness HEENT: Reports: no symptoms Cardiovascular: Reports: no symptoms Respiratory: Reports: cough Gastrointestinal/Abdominal: Reports: no symptoms Genitourinary: Reports: no symptoms Neurologic/Psychiatric: Reports: no symptoms Endocrine: Reports: no symptoms Hematologic/Lymphatic: Reports: no symptoms Allergies: Coded Allergies: No Known Allergies (Unverified , 09/11/17) All Systems: reviewed and negative except above Subjective feels a little better today. no cough. night sweats better. currently on iv abx but no iv access. Objective Last 24 Hour Vital Signs Date Time Temp Pulse Resp B/P (MAP) Pulse Ox O2 Delivery O2 Flow Rate FiO2 03/21/18 08:43 84 21 97 Room Air 03/21/18 08:43 84 21 97 Room Air 03/21/18 08:26 133/78 03/21/18 07:06 93 19 98 Room Air 03/21/18 07:01 Room Air 03/21/18 07:01 Room Air 03/21/18 06:55 92 17 94 Room Air 03/21/18 04:00 98.0 78 20 134/73 (93) 95 98.0 03/21/18 03:34 92 18 96 Room Air 03/21/18 03:25 94 20 94 Room Air 03/21/18 03:25 21 03/20/18 23:55 96.8 86 18 152/101 (118) 96 96.8 03/20/18 23:51 89 18 97 Room Air 03/20/18 23:42 21 03/20/18 23:41 91 18 95 Room Air 21 03/20/18 21:00 Room Air 03/20/18 20:00 97.7 80 19 137/85 (102) 97 97.7 03/20/18 19:55 91 18 99 Room Air 21 03/20/18 19:45 21 03/20/18 19:45 90 18 98 Room Air 21 03/20/18 19:45 90 18 98 Room Air 21 03/20/18 19:45 90 18 98 Room Air 21 03/20/18 16:00 98.0 79 18 155/97 (116) 100 98.0 03/20/18 15:29 88 20 99 Room Air 21 03/20/18 15:15 86 18 99 Room Air 03/20/18 14:11 89 152/95 03/20/18 12:00 98.0 89 20 152/95 (114) 95 98.0 03/20/18 11:00 Room Air 03/20/18 11:00 Room Air 03/20/18 09:26 93 18 21 Room Air 03/20/18 09:00 Room Air Intake and Output 03/20/18 03/21/18 19:00 07:00 Intake Total 1000 ml 450 ml Balance 1000 ml 450 ml Intake Oral 1000 ml 450 ml # Voids 6 4 # Bowel Movements 1 Laboratory Tests 03/21/18 07:10: Sodium Level 141, Potassium Level 4.1, Chloride Level 104, Carbon Dioxide Level 29, Anion Gap 8, Blood Urea Nitrogen 18, Creatinine 1.2, Estimat Glomerular Filtration Rate , Glucose Level 93, Calcium Level 8.7, Total Bilirubin 0.2, Aspartate Amino Transf (AST/SGOT) 25, Alanine Aminotransferase (ALT/SGPT) 35, Alkaline Phosphatase 52, Total Protein 6.5, Total Protein (PEP) [Pending], Albumin 2.3L, Albumin (PEP) [Pending], Globulin 4.2, Globulin (PEP) [Pending], Albumin/Globulin Ratio [Pending], Rurcc-6-Cpparqlxb [Pending], Alpha-2- Globulins [Pending], Beta Globulins [Pending], Beta Gamma Globulin [Pending], PEP Abnormal Protein Bands [Pending], Protein Electrophoresis Interpret [Pending ], Immunoglobulin G [Pending], Immunoglobulin A [Pending], Immunoglobulin M [ Pending], Immunofixation Screen [Pending], Anti-Nuclear Antibody Screen [Pending ], c-ANCA Titer [Pending], p-ANCA Titer [Pending] Height (Feet): 6 Height (Inches): 2.00 Weight (Pounds): 266 General Appearance: WD/WN, alert Neck: supple Cardiovascular: normal rate Respiratory/Chest: chest wall non-tender, lungs clear, normal breath sounds Abdomen: normal bowel sounds, non tender, soft, no organomegaly 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
[2018-03-21 12:00] VITALS: BP 137/82
--- NOTE | 2018-03-21 15:00 | Infectious Diseases Prog Note ---
Assessment/Plan Assessment/Plan A; Pneumonia HIV Hypertension P; discontinue ceftriaxone & Zithromax Start on PO Levaquin Continue ART with Genvoya Subjective ROS Limited/Unobtainable: No Constitutional: Reports: no symptoms Respiratory: Reports: productive cough Cardiovascular: Reports: no symptoms, other - no IV access Gastrointestinal/Abdominal: Reports: other - hiccups Genitourinary: Reports: no symptoms Allergies: Coded Allergies: No Known Allergies (Unverified , 09/11/17) Objective Vital Signs Last 24 Hour Vital Signs Date Time Temp Pulse Resp B/P (MAP) Pulse Ox O2 Delivery O2 Flow Rate FiO2 03/21/18 12:00 97.5 81 20 137/82 (100) 95 97.5 03/21/18 11:04 74 20 98 Room Air 03/21/18 10:54 76 17 97 Room Air 03/21/18 08:43 84 21 97 Room Air 03/21/18 08:43 84 21 97 Room Air 03/21/18 08:26 133/78 03/21/18 08:15 Room Air 03/21/18 08:00 98.2 65 20 133/78 (96) 95 98.2 03/21/18 07:06 93 19 98 Room Air 03/21/18 07:01 Room Air 03/21/18 07:01 Room Air 03/21/18 06:55 92 17 94 Room Air 03/21/18 04:00 98.0 78 20 134/73 (93) 95 98.0 03/21/18 03:34 92 18 96 Room Air 03/21/18 03:25 94 20 94 Room Air 03/21/18 03:25 21 03/20/18 23:55 96.8 86 18 152/101 (118) 96 96.8 03/20/18 23:51 89 18 97 Room Air 03/20/18 23:42 21 03/20/18 23:41 91 18 95 Room Air 03/20/18 21:00 Room Air 03/20/18 20:00 97.7 80 19 137/85 (102) 97 97.7 03/20/18 19:55 91 18 99 Room Air 21 03/20/18 19:45 21 03/20/18 19:45 90 18 98 Room Air 21 8/22/18 19:45 90 18 98 Room Air 21 03/20/18 19:45 90 18 98 Room Air 21 03/20/18 16:00 98.0 79 18 155/97 (116) 100 98.0 03/20/18 15:29 88 20 99 Room Air 21 03/20/18 15:15 86 18 99 Room Air 21 Height (Feet): 6 Height (Inches): 2.00 Weight (Pounds): 266 General Appearance: no acute distress Respiratory/Chest: lungs clear Cardiovascular: normal rate Abdomen: soft, non tender Extremities: no edema Neurologic/Psychiatric: alert, oriented x 3, responsive Microbiology Date/Time Source Procedure Growth Status 03/19/18 05:00 Sputum Gram Stain - Final Complete 03/19/18 05:00 Sputum Sputum Culture - Final NORMAL UPPER RESPIRATORY YURY PRESENT Complete Laboratory Tests Test 03/21/18 07:10 Sodium Level 141 MMOL/L (136-145) Potassium Level 4.1 MMOL/L (3.5-5.1) Chloride Level 104 MMOL/L (98-107) Carbon Dioxide Level 29 MMOL/L (21-32) Anion Gap 8 mmol/L (5-15) Blood Urea Nitrogen 18 mg/dL (7-18) Creatinine 1.2 MG/DL (0.55-1.30) Estimat Glomerular Filtration Rate mL/min (>60) Glucose Level 93 MG/DL (74-106) Calcium Level 8.7 MG/DL (8.5-10.1) Total Bilirubin 0.2 MG/DL (0.2-1.0) Aspartate Amino Transf (AST/SGOT) 25 U/L (15-37) Alanine Aminotransferase (ALT/SGPT) 35 U/L (12-78) Alkaline Phosphatase 52 U/L (46-116) Total Protein 6.5 G/DL (6.4-8.2) Total Protein (PEP) Pending Albumin 2.3 G/DL (3.4-5.0) L Albumin (PEP) Pending Globulin 4.2 g/dL Globulin (PEP) Pending Albumin/Globulin Ratio Pending [id number] Pending [id number] Pending Beta Globulins Pending Beta Gamma Globulin Pending PEP Abnormal Protein Bands Pending Protein Electrophoresis Interpret Pending Immunoglobulin G Pending Immunoglobulin A Pending Immunoglobulin M Pending Immunofixation Screen Pending Anti-Nuclear Antibody Screen Pending c-ANCA Titer Pending p-ANCA Titer Pending Current Medications Medications (Trade) Dose Ordered Sig/Ronald Route PRN Reason Start Time Stop Time Status Last Admin Dose Admin Albuterol/ Ipratropium (Albuterol/ Ipratropium) 3 ml Q4HRT HHN 03/18/18 23:00 03/23/18 22:59 03/21/18 10:54 Apixaban (Eliquis) 5 mg Q12HR ORAL 03/18/18 21:36 04/17/18 21:35 03/21/18 08:26 Azithromycin 500 mg/Dextrose 275 ml @ 275 mls/hr Q24HRS IV 03/19/18 16:00 03/25/18 16:59 03/20/18 15:38 Barium Sulfate (Readi-Cat 2) 450 ml NOW PRN ORAL Radiology Procedure 03/21/18 13:00 03/23/18 12:58 Budesonide/ Formoterol Fumarate (Symbicort 160/ 4.5) 2 puff TWICE A DAY INH 03/19/18 09:00 04/18/18 08:59 03/21/18 08:42 Ceftriaxone Sodium 1 gm/ Dextrose 55 ml @ 110 mls/hr Q24H IVPB 03/19/18 17:00 03/26/18 16:59 03/20/18 16:46 Diltiazem HCl (Cardizem CD) 180 mg DAILY ORAL 03/20/18 09:00 04/19/18 08:59 03/20/18 14:11 Famotidine (Pepcid) 20 mg DAILY ORAL 03/18/18 21:56 04/17/18 21:55 03/21/18 08:25 Fluticasone Propionate (Flonase) 1 spray TWICE A DAY NASAL 03/18/18 21:15 04/17/18 21:14 03/21/18 08:26 Hydralazine HCl (Apresoline) 25 mg Q6H PRN ORAL SBP above 160 03/18/18 21:33 04/17/18 21:32 03/19/18 23:41 Latanoprost (Xalatan) 1 drop BEDTIME BOTH EYES 03/18/18 21:30 04/17/18 21:29 03/20/18 20:25 Losartan Potassium (Cozaar) 100 mg DAILY ORAL 03/18/18 21:56 04/17/18 21:55 03/21/18 08:26 Magnesium Hydroxide (Mom) 30 ml DAILYPRN PRN ORAL Constipation 03/20/18 14:15 04/19/18 14:14 Metoclopramide HCl (Reglan) 10 mg Q8H PRN IVP Nausea & Vomiting 03/20/18 09:30 04/19/18 09:29 03/20/18 12:28 Pantoprazole (Protonix) 40 mg DAILY ORAL 03/19/18 09:00 04/18/18 08:59 03/21/18 08:25 Patient Own Medication (Patient's Own Med) 1 ea DAILY ORAL 03/19/18 09:00 04/18/18 08:59 03/21/18 08:25 Polyethylene Glycol (Miralax) 17 gm DAILY ORAL 03/20/18 15:00 04/19/18 14:59 03/21/18 08:26 Terbinafine HCl (LamISIL) 250 mg DAILY ORAL 03/18/18 21:56 03/25/18 21:55 03/21/18 08:25 Freeman Badillo MD Mar 21, 2018 15:00
[2018-03-21 16:00] VITALS: BP 145/94
--- NOTE | 2018-03-21 17:25 | Nephrology Progress Note ---
Assessment/Plan Problem List: (1) Proteinuria (2) Edema (3) Pneumonia (4) Hypertension Plan 24 hr urine in process, continue current meds Subjective Constitutional: Reports: no symptoms HEENT: Reports: no symptoms Genitourinary: Reports: no symptoms Neurologic/Psychiatric: Reports: no symptoms Subjective less cough Objective Objective Last 24 Hour Vital Signs Date Time Temp Pulse Resp B/P (MAP) Pulse Ox O2 Delivery O2 Flow Rate FiO2 03/21/18 16:00 98.6 103 20 145/94 (111) 95 98.6 03/21/18 15:16 78 20 98 Room Air 21 03/21/18 15:04 79 18 98 Room Air 21 03/21/18 12:00 97.5 81 20 137/82 (100) 95 97.5 03/21/18 11:04 74 20 98 Room Air 03/21/18 10:54 76 17 97 Room Air 03/21/18 08:43 84 21 97 Room Air 03/21/18 08:43 84 21 97 Room Air 03/21/18 08:26 133/78 03/21/18 08:15 Room Air 03/21/18 08:00 98.2 65 20 133/78 (96) 95 98.2 03/21/18 07:06 93 19 98 Room Air 03/21/18 07:01 Room Air 03/21/18 07:01 Room Air 03/21/18 06:55 92 17 94 Room Air 03/21/18 04:00 98.0 78 20 134/73 (93) 95 98.0 03/21/18 03:34 92 18 96 Room Air 03/21/18 03:25 94 20 94 Room Air 03/21/18 03:25 21 03/20/18 23:55 96.8 86 18 152/101 (118) 96 96.8 03/20/18 23:51 89 18 97 Room Air 03/20/18 23:42 21 03/20/18 23:41 91 18 95 Room Air 03/20/18 21:00 Room Air 03/20/18 20:00 97.7 80 19 137/85 (102) 97 97.7 03/20/18 19:55 91 18 99 Room Air 03/20/18 19:45 21 03/20/18 19:45 90 18 98 Room Air 21 03/20/18 19:45 90 18 98 Room Air 21 03/20/18 19:45 90 18 98 Room Air 21 Intake and Output 03/20/18 03/21/18 19:00 07:00 Intake Total 1000 ml 450 ml Balance 1000 ml 450 ml Intake Oral 1000 ml 450 ml # Voids 6 4 # Bowel Movements 1 Laboratory Tests 03/21/18 07:10: Sodium Level 141, Potassium Level 4.1, Chloride Level 104, Carbon Dioxide Level 29, Anion Gap 8, Blood Urea Nitrogen 18, Creatinine 1.2, Estimat Glomerular Filtration Rate , Glucose Level 93, Calcium Level 8.7, Total Bilirubin 0.2, Aspartate Amino Transf (AST/SGOT) 25, Alanine Aminotransferase (ALT/SGPT) 35, Alkaline Phosphatase 52, Total Protein 6.5, Total Protein (PEP) [Pending], Albumin 2.3L, Albumin (PEP) [Pending], Globulin 4.2, Globulin (PEP) [Pending], Albumin/Globulin Ratio [Pending], Yrfdj-1-Twniryzwm [Pending], Alpha-2- Globulins [Pending], Beta Globulins [Pending], Beta Gamma Globulin [Pending], PEP Abnormal Protein Bands [Pending], Protein Electrophoresis Interpret [Pending ], Immunoglobulin G [Pending], Immunoglobulin A [Pending], Immunoglobulin M [ Pending], Immunofixation Screen [Pending], Anti-Nuclear Antibody Screen [Pending ], c-ANCA Titer [Pending], p-ANCA Titer [Pending] Height (Feet): 6 Height (Inches): 2.00 Weight (Pounds): 266 General Appearance: WD/WN, no apparent distress EENT: normal ENT inspection Neck: normal alignment, supple Cardiovascular: normal rate Respiratory/Chest: lungs clear Abdomen: non tender Extremities: trace edema 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
[2018-03-21 20:00] VITALS: BP 158/90
[2018-03-21] MEDS: Latanoprost 0.005% Opth 2.5ml Soln BOTH EYES SCH (20:36)
--- NOTE | 2018-03-21 22:00 | Progress Note ---
DATE: 03/21/2018 CARDIOLOGY PROGRESS NOTE SUBJECTIVE: The patient feels his abdomen is much more bloated, although he had a small bowel movement today and another yesterday. His cough has diminished. His chest x-ray yesterday revealed improvement in his infiltrate on the left side. OBJECTIVE: VITAL SIGNS: Blood pressure 133/78, pulse 84, respirations 21, and oxygen saturation 97% on room air. HEENT: No thrush. LUNGS: Few rhonchi. CARDIAC: Regular rhythm and rate. Normal S1 and S2 with a fourth heart sound. ABDOMEN: Slightly distended, but soft. EXTREMITIES: Trace lower extremity edema bilaterally. IMPRESSION: 1. Community-acquired pneumonia, improved. 2. HIV positive with T-cell count pending and viral load studies pending. 3. Hypertensive urgency, resolved with improving blood pressure control. 4. Chronic kidney disease with edema and proteinuria. A 24-hour urine study pending. PLAN: 1. Transition from IV to oral antibiotics. 2. Continue respiratory hygiene. 3. Continue titration of antihypertensives. 4. Complete 24-hour urine studies. 5. Discharge planning. 6. Bowel regimen. 7. CT scan of the abdomen. Sarmad Wilks M.D. DR: AUBREY JOB#: [id number] CC:
[2018-03-22] VITALS: BP 159/99
[2018-03-22] MEDS: Albuterol/Ipratropium 3ml neb HHN SCH ×3 (03:00→11:00)
[2018-03-22 04:00] VITALS: BP 155/95
--- NOTE | 2018-03-22 07:55 | General Progress Note ---
Assessment/Plan Problem List: (1) Hypertension ICD Codes: I10 - Essential (primary) hypertension SNOMED: 15167668 Qualifiers: Qualified Codes: I10 - Essential (primary) hypertension (2) ACS (acute coronary syndrome) ICD Codes: I24.9 - Acute ischemic heart disease, unspecified SNOMED: 166485704 (3) Pneumonia ICD Codes: J18.9 - Pneumonia, unspecified organism SNOMED: 870031085 Qualifiers: Qualified Codes: J18.1 - Lobar pneumonia, unspecified organism Status: doing well, stable Assessment/Plan follow up cultures cxr improving iv to po follow up t cell subsets resp rx ct abd trial thorazine 20 qid prn hiccups Subjective ROS Limited/Unobtainable: No Constitutional: Reports: malaise, weakness HEENT: Reports: no symptoms Cardiovascular: Reports: no symptoms Respiratory: Reports: cough, other - severe hiccups Gastrointestinal/Abdominal: Reports: abdomen distended Genitourinary: Reports: no symptoms Neurologic/Psychiatric: Reports: no symptoms Endocrine: Reports: no symptoms Hematologic/Lymphatic: Reports: no symptoms Allergies: Coded Allergies: No Known Allergies (Unverified , 09/11/17) All Systems: reviewed and negative except above Subjective c/o abd pain and "fullness" Intractable hiccups. ID noted. Objective Last 24 Hour Vital Signs Date Time Temp Pulse Resp B/P (MAP) Pulse Ox O2 Delivery O2 Flow Rate FiO2 03/22/18 04:00 97.6 87 18 155/95 (115) 96 97.6 03/22/18 03:23 Room Air 03/22/18 03:23 Room Air 03/22/18 00:00 97.7 90 18 159/99 (119) 97 97.7 03/21/18 23:37 90 20 98 Room Air 21 03/21/18 23:27 91 20 97 Room Air 21 03/21/18 21:00 Room Air 03/21/18 20:00 97.8 90 20 158/90 (112) 95 97.8 03/21/18 19:07 91 20 99 Room Air 03/21/18 18:57 94 20 95 Room Air 21 03/21/18 18:55 94 20 95 Room Air 03/21/18 18:53 93 20 95 Room Air 03/21/18 16:00 98.6 103 20 145/94 (111) 95 98.6 03/21/18 15:16 78 20 98 Room Air 21 03/21/18 15:04 79 18 98 Room Air 21 03/21/18 12:00 97.5 81 20 137/82 (100) 95 97.5 03/21/18 11:04 74 20 98 Room Air 21 03/21/18 10:54 76 17 97 Room Air 21 03/21/18 08:43 84 21 97 Room Air 21 03/21/18 08:43 84 21 97 Room Air 21 03/21/18 08:26 133/78 03/21/18 08:15 Room Air 03/21/18 08:00 98.2 65 20 133/78 (96) 95 98.2 Intake and Output 03/21/18 03/22/18 19:00 07:00 Intake Total 1080 ml Output Total 1050 ml Balance 30 ml Intake Oral 1080 ml Output Urine Total 1050 ml # Voids 5 Laboratory Tests 03/21/18 18:10: Urine Total Volume 24 Hours [Pending], Urine Creatinine 24 Hour [Pending], Urine Microalbumin mg/day [Pending], Urine Microalbumin ug/minute [Pending], Urine Immunofixation [Pending] Height (Feet): 6 Height (Inches): 2.00 Weight (Pounds): 266 Objective General Appearance: WD/WN, alert Neck: supple Cardiovascular: normal rate Respiratory/Chest: chest wall non-tender, lungs clear, normal breath sounds Abdomen: normal bowel sounds, non tender, soft, no organomegaly 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
[2018-03-22 08:00] VITALS: BP 150/90
[2018-03-22] MEDS ORDERED: chlorproMAZINE 10mg tab ORAL PRN (08:00)
[2018-03-22] MEDS: Miralax 17gm pkt ORAL SCH (09:00)
[2018-03-22] MEDS: Flonase Nasal Inhaler 16gm NASAL SCH (09:53)
[2018-03-22] MEDS: dilTIAZem HCl CD 180mg cap ORAL SCH (09:53)
[2018-03-22] MEDS: Eliquis 2.5mg tablet ORAL SCH (09:55)
[2018-03-22] MEDS: Losartan 50mg tab ORAL SCH (09:55)
[2018-03-22] MEDS: GENVOYA ORAL SCH (09:55)
--- NOTE | 2018-03-22 11:57 | Diagnostic Imaging Report ---
Indication: Abdominal distention Technique: Spiral acquisitions obtained through the abdomen and pelvis. Patient ingested a limited amount of enteric contrast. No IV contrast utilized, per referring physician request.. Multiplanar reconstructions were generated. Total dose length product 884.57 mGycm. CTDIvol(s) 16.58 mGy. Dose reduction achieved using automated exposure control Comparison: None Findings: There is colonic diverticulosis. No evidence of diverticulitis. Moderate amount of stool is seen within the colon. The appendix is normal. Ingested contrast traverses the entirety of the small bowel except for the terminal ileum. There is no small bowel dilatation or small bowel wall thickening. No free or loculated intraperitoneal gas or fluid is evident. The distal esophagus, stomach, and duodenum are unremarkable. There is a broad-based small umbilical hernia, with small bowel loops protruding into the defect, no evidence of strangulation or obstruction. There are small fat-containing bilateral inguinal hernias. Lack of IV contrast limits assessment of the solid organs. There is a horseshoe kidney. The left moiety demonstrates prominent extrarenal pelvis and hydronephrosis. No hydroureter, however. On the right moiety, there is a prominent extrarenal pelvis which is dilated, but no alban calyceal or infundibular hydronephrosis is evident. No hydroureter. No renal or ureteral calculi. There is a right lower pole renal cyst demonstrated. There is also right upper pole renal cyst demonstrated. No definite focal parenchymal abnormality on the left or in the isthmus. The liver demonstrates multiple cysts as well as multiple subcentimeter low-attenuation lesions which are too small to characterize. The gallbladder is unremarkable. No biliary ductal dilatation. The pancreas, spleen, adrenals are all unremarkable. No pelvic mass or adenopathy. The included lung bases demonstrate reticular and airspace opacities, possibly with an element of honeycombing. There is minimal scarring or atelectasis at the right lung base. The bones are unremarkable. Impression: Moderate retained colonic stool, could indicate constipation. Correlate with clinical history Horseshoe kidney. This demonstrates left hydronephrosis and prominent dilated right extrarenal pelvis without calyceal hydronephrosis, normal caliber ureter. 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 No definite acute process Colonic diverticulosis. No evidence of diverticulitis Multiple liver cysts. Multiple subcentimeter low-attenuation liver lesions, too small to characterize, most likely benign simple cysts or bile hamartomas. No further follow-up necessary Parenchymal changes at the left lung base, appearance mostly that of honeycombing suggestive of chronic interstitial fibrotic change, but superimposed acute airspace disease also possible. Right basilar scarring or atelectasis Other findings as noted, including right renal cysts, broad-based nonobstructive umbilical hernia, fat-containing bilateral inguinal hernias Findings discussed by phone with Dr. Wilks at the time of interpretation The CT scanner at [facility] is accredited by the [employer] and the scans are performed using protocols designed to limit radiation exposure to as low as reasonably achievable to attain images of sufficient resolution adequate for diagnostic evaluation.
[2018-03-22 12:00] VITALS: BP 146/82
[2018-03-22] MEDS ORDERED: LEVAQUIN500 MG ORAL (12:27)
--- NOTE | 2018-03-22 13:06 | Infectious Diseases Prog Note ---
Assessment/Plan Assessment/Plan A; Pneumonia HIV Hypertension Left hydronephrosis Horseshoe kidneys P; Agree with discharge with PO Levaquin Continue ART with Genvoya Subjective ROS Limited/Unobtainable: No Constitutional: Reports: no symptoms Respiratory: Reports: no symptoms Cardiovascular: Reports: no symptoms Gastrointestinal/Abdominal: Reports: no symptoms Genitourinary: Reports: no symptoms Allergies: Coded Allergies: No Known Allergies (Unverified , 09/11/17) Objective Vital Signs Last 24 Hour Vital Signs Date Time Temp Pulse Resp B/P (MAP) Pulse Ox O2 Delivery O2 Flow Rate FiO2 03/22/18 12:00 97.9 83 20 146/82 (103) 95 97.9 03/22/18 10:35 Room Air 03/22/18 10:35 Room Air 03/22/18 10:25 80 18 98 Room Air 03/22/18 10:25 80 18 98 Room Air 03/22/18 09:55 150/90 03/22/18 09:53 85 150/90 03/22/18 09:00 Room Air 03/22/18 08:25 85 18 98 Room Air 03/22/18 08:15 86 20 98 Room Air 03/22/18 08:00 98.3 86 21 150/90 (110) 92 98.3 03/22/18 04:00 97.6 87 18 155/95 (115) 96 97.6 03/22/18 03:23 Room Air 03/22/18 03:23 Room Air 03/22/18 00:00 97.7 90 18 159/99 (119) 97 97.7 03/21/18 23:37 90 20 98 Room Air 03/21/18 23:27 91 20 97 Room Air 03/21/18 21:00 Room Air 03/21/18 20:00 97.8 90 20 158/90 (112) 95 97.8 03/21/18 19:07 91 20 99 Room Air 03/21/18 18:57 94 20 95 Room Air 03/21/18 18:55 94 20 95 Room Air 03/21/18 18:53 93 20 95 Room Air 03/21/18 16:00 98.6 103 20 145/94 (111) 95 98.6 03/21/18 15:16 78 20 98 Room Air 21 03/21/18 15:04 79 18 98 Room Air 21 Height (Feet): 6 Height (Inches): 2.00 Weight (Pounds): 266 General Appearance: no acute distress HEENT: mucous membranes moist Respiratory/Chest: lungs clear Cardiovascular: normal rate Abdomen: soft, non tender Extremities: no edema Neurologic/Psychiatric: alert, oriented x 3, responsive Laboratory Tests Test 03/21/18 18:10 Urine Total Volume 24 Hours Pending Urine Creatinine 24 Hour Pending Urine Microalbumin mg/day Pending Urine Microalbumin ug/minute Pending Urine Immunofixation Pending Current Medications Medications (Trade) Dose Ordered Sig/Ronald Route PRN Reason Start Time Stop Time Status Last Admin Dose Admin Albuterol/ Ipratropium (Albuterol/ Ipratropium) 3 ml Q4HRT HHN 03/18/18 23:00 03/23/18 22:59 03/22/18 08:13 Apixaban (Eliquis) 5 mg Q12HR ORAL 03/18/18 21:36 04/17/18 21:35 03/22/18 09:55 Barium Sulfate (Readi-Cat 2) 450 ml NOW PRN ORAL Radiology Procedure 03/21/18 13:00 03/23/18 12:58 Barium Sulfate (Readi-Cat 2) 450 ml NOW PRN ORAL Radiology Procedure 03/22/18 08:00 03/24/18 07:53 Budesonide/ Formoterol Fumarate (Symbicort 160/ 4.5) 2 puff TWICE A DAY INH 03/19/18 09:00 04/18/18 08:59 03/22/18 10:25 Chlorpromazine (Thorazine) 20 mg QID PRN ORAL HICCUPS 03/22/18 08:00 04/21/18 07:59 Diltiazem HCl (Cardizem CD) 180 mg DAILY ORAL 03/20/18 09:00 04/19/18 08:59 03/22/18 09:53 Famotidine (Pepcid) 20 mg DAILY ORAL 03/18/18 21:56 04/17/18 21:55 03/22/18 09:54 Fluticasone Propionate (Flonase) 1 spray TWICE A DAY NASAL 03/18/18 21:15 04/17/18 21:14 03/22/18 09:53 Hydralazine HCl (Apresoline) 25 mg Q6H PRN ORAL SBP above 160 03/18/18 21:33 04/17/18 21:32 03/19/18 23:41 Latanoprost (Xalatan) 1 drop BEDTIME BOTH EYES 03/18/18 21:30 04/17/18 21:29 03/21/18 20:36 Levofloxacin (Levaquin) 750 mg Q24H ORAL 03/21/18 16:00 03/28/18 15:59 03/21/18 17:27 Losartan Potassium (Cozaar) 100 mg DAILY ORAL 03/18/18 21:56 04/17/18 21:55 03/22/18 09:55 Magnesium Hydroxide (Mom) 30 ml DAILYPRN PRN ORAL Constipation 03/20/18 14:15 04/19/18 14:14 Metoclopramide HCl (Reglan) 10 mg Q8H PRN IVP Nausea & Vomiting 03/20/18 09:30 04/19/18 09:29 03/20/18 12:28 Pantoprazole (Protonix) 40 mg DAILY ORAL 03/19/18 09:00 04/18/18 08:59 03/22/18 09:54 Patient Own Medication (Patient's Own Med) 1 ea DAILY ORAL 03/19/18 09:00 04/18/18 08:59 03/22/18 09:55 Polyethylene Glycol (Miralax) 17 gm DAILY ORAL 03/20/18 15:00 04/19/18 14:59 03/21/18 08:26 Terbinafine HCl (LamISIL) 250 mg DAILY ORAL 03/18/18 21:56 03/25/18 21:55 03/22/18 09:54 Freeman Badillo MD Mar 22, 2018 13:06
--- NOTE | 2018-03-22 13:07 | Nephrology Progress Note ---
Assessment/Plan Problem List: (1) Proteinuria (2) Edema (3) Pneumonia (4) Hypertension Plan 24 hr urine in process, continue current meds minimal proteinuria Subjective Constitutional: Reports: no symptoms HEENT: Reports: no symptoms Genitourinary: Reports: no symptoms Neurologic/Psychiatric: Reports: no symptoms Subjective less cough Objective Objective Last 24 Hour Vital Signs Date Time Temp Pulse Resp B/P (MAP) Pulse Ox O2 Delivery O2 Flow Rate FiO2 03/22/18 12:00 97.9 83 20 146/82 (103) 95 97.9 03/22/18 10:35 Room Air 03/22/18 10:35 Room Air 03/22/18 10:25 80 18 98 Room Air 21 03/22/18 10:25 80 18 98 Room Air 21 03/22/18 09:55 150/90 03/22/18 09:53 85 150/90 03/22/18 09:00 Room Air 03/22/18 08:25 85 18 98 Room Air 03/22/18 08:15 86 20 98 Room Air 21 03/22/18 08:00 98.3 86 21 150/90 (110) 92 98.3 03/22/18 04:00 97.6 87 18 155/95 (115) 96 97.6 03/22/18 03:23 Room Air 03/22/18 03:23 Room Air 03/22/18 00:00 97.7 90 18 159/99 (119) 97 97.7 03/21/18 23:37 90 20 98 Room Air 21 03/21/18 23:27 91 20 97 Room Air 21 03/21/18 21:00 Room Air 03/21/18 20:00 97.8 90 20 158/90 (112) 95 97.8 03/21/18 19:07 91 20 99 Room Air 21 03/21/18 18:57 94 20 95 Room Air 21 03/21/18 18:55 94 20 95 Room Air 21 03/21/18 18:53 93 20 95 Room Air 21 03/21/18 16:00 98.6 103 20 145/94 (111) 95 98.6 03/21/18 15:16 78 20 98 Room Air 21 03/21/18 15:04 79 18 98 Room Air 21 Intake and Output 03/21/18 03/22/18 19:00 07:00 Intake Total 1080 ml Output Total 1050 ml Balance 30 ml Intake Oral 1080 ml Output Urine Total 1050 ml # Voids 5 Laboratory Tests 03/21/18 18:10: Urine Total Volume 24 Hours [Pending], Urine Creatinine 24 Hour [Pending], Urine Microalbumin mg/day [Pending], Urine Microalbumin ug/minute [Pending], Urine Immunofixation [Pending] Height (Feet): 6 Height (Inches): 2.00 Weight (Pounds): 266 General Appearance: no apparent distress EENT: normal ENT inspection Neck: normal alignment Cardiovascular: regular rhythm Respiratory/Chest: lungs clear Abdomen: non tender, soft Extremities: trace edema Neurologic: lead teacher II-XII grossly normal AUDREY HUERTA Mar 22, 2018 13:07
--- NOTE | 2018-03-22 22:15 | Progress Note ---
DATE: 03/22/2018 CARDIOLOGY PROGRESS NOTE SUBJECTIVE: The patient still has hiccups, minimal cough and congestion. He is constipated. CT scan of the abdomen discussed with Dr. Man. Findings notable for full of stool, diverticulosis, and horseshoe kidney. No significant hydronephrosis. Left lung infiltrate versus fibrosis. OBJECTIVE: VITAL SIGNS: Blood pressure 150/90, pulse 85, respiratory rate 20. LUNGS: Clear with few rhonchi. CARDIAC: Regular rhythm and rate. Normal S1 and S2 with a fourth heart sound. ABDOMEN: Soft. EXTREMITIES: No edema. IMPRESSION: 1. Resolving pneumonia, possible component of pulmonary fibrosis. 2. Horseshoe kidney. 3. Chronic kidney disease. 4. Hypertensive heart disease with labile blood pressure. 5. HIV positive. 6. Hiccups likely due to acute pulmonary and GI pathology irritating the diaphragm. PLAN: 1. Complete oral antibiotics at home. 2. Bowel regimen discussed. 3. Renal follow up long-term and continue titration of antihypertensives. Sarmad Wliks M.D. DR: AUBREY JOB#: [id number] CC:
--- NOTE | 2018-03-24 12:04 | Discharge Summary ---
Discharge Summary Discharge Summary _ DATE OF ADMISSION: 03/18/2018 DATE OF DISCHARGE: 03/22/2018 REASON FOR ADMISSION: 73 years old male with past medical history of hypertension,asthma, HIV positive, presented to emergency department complaining of shortness of breath for 5 days. He reported cough and wheezing. Cough was productive with yellowish phlegm. No fever, no chills. No chest pain . Patient reported recent elevated blood pressure and compliance with his antihypertensive regimen. Patient also reported that about a week ago, he developed severe diarrhea with drenching night sweats. He complained of generalized malaise and weakness. Patient was seen by service delivery management consultant on the day of admission , and was noted to be short of breath , hypertensive , dizzy and week. Patient was sent to emergency department for further evaluation. Upon evaluation patient was tachycardic, tachypneic, pulse oximetry was 90% on room air. Patient was afebrile. Blood pressure was elevated. Laboratory workup revealed no leukocytosis ,hemoglobin 11.2 ,hematocrit 33.4 . BUN 17, creatinine 1.5. Stable electrolytes and LFTs. Troponin negative. Pro BNP 369. Lactic acid 1.5. Urinalysis revealed no evidence of UTI. EKG revealed normal sinus rhythm, no acute ischemic changes. Chest x-ray revealed left basilar reticular infiltrate, likely pneumonia. Patient admitted with diagnoses of pneumonia, hypertensive heart disease, HIV status, rule out gastroenteritis CONSULTANTS: service delivery management consultant dr.Kattan NEIL specialist Dr. Padilla brick setter operator Dr. Vides fbi investigator Dr. Naranjo [facility] COURSE: Patient admitted. Patient started on empiric IV antibiotic. Infectious disease specialist closely followed. Supplemental oxygen provided as needed to keep pulse oximetry above 92%. Pulmonary toilet provided. Patient was on gentle IV hydration. Blood culture were negative. Sputum culture was negative. Antitussive provided as needed. Steroid inhaler continued. Follow-up chest x-ray revealed improved, but persistent left lower lobe infiltrate, likely reflecting improving pneumonia. Prior to discharge antibiotic converted to oral to complete the course of antibiotics at home. Clerk Secretary closely followed. Antihypertensive medication regimen was titrated as per service delivery management consultant. Full anticoagulation restarted given recurrent DVT, and previously on chronic anticoagulation. Patient was closely monitored for recurrent diarrhea. Diarrhea resolved . CT of the abdomen and pelvis actually revealed moderate retained colonic stool, indicative of possible constipation. Horseshoe kidney with left hydronephrosis. No definite acute process. Colonic diverticulosis without evidence of diverticulitis. Bowel regimen instituted . Patient had stable bowel movement. Protein supplements added to diet. Cardiorenal parameters and volumes were closely monitored. Nephrotoxins were avoided. Electrolytes corrected as needed. Sheet Rock Hanger clsoely followed. Supportive care provided. Pain management addressed as needed. Chin Strap Sewer seen and evaluated patient. Foot and nail care guidelines were discussed at length with the patient. Patient consented and subsequently undergone mechanical debridement of all ascending nails and lesions, partial thickness , with immediate relief noted. Patient was encourage completion of oral Lamisil course and continue to be closely monitored. Patient was recommend range of motion, elevation at rest, and continue treatment per primary doctor. Blood pressure stabilized. Patient clinically improved. Pulse oximetry stable on room air. 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 DISCHARGE INSTRUCTIONS: Patient was discharged home . Follow up with primary care provider in one week. I have been assigned to dictate discharge summary for this account. I was not involved in the patient's management. Pearl Perry NP Mar 24, 2018 12:04
== END 2018-03-22 13:45 | disposition home or self-care (01) | DRG 974 ==
LOC: EMR 16:23 → 4E 16:25 → EDBEDREQ 16:41
DX: J18.9 Pneumonia, unspecified organism (principal); B20 Human immunodeficiency virus [HIV] disease; E43 Unspecified severe protein-calorie malnutrition; I24.9 Acute ischemic heart disease, unspecified; I13.0 Hypertensive heart and chronic kidney disease with heart failure and stage 1 through stage 4 chronic kidney disease, or unspecified chronic kidney disease; I50.32 Chronic diastolic (congestive) heart failure; N13.39 Other hydronephrosis; D68.59 Other primary thrombophilia; N18.9 Chronic kidney disease, unspecified; I16.0 Hypertensive urgency; Q63.1 Lobulated, fused and horseshoe kidney; B35.1 Tinea unguium; R09.02 Hypoxemia; Z86.718 Personal history of other venous thrombosis and embolism; Z86.711 Personal history of pulmonary embolism; L85.1 Acquired keratosis [keratoderma] palmaris et plantaris
CPT/HCPCS: 36415; 71045; 71046; 74176; 80053; 81003; 81050; 82043; 82570; 82784; 83605; 83735; 83880; 84156; 84165; 84443; 84484; 85007; 85025; 86021; 86039; 86334; 86360; 86713; 86738; 87040; 87070; 87205; 93005; 94640; 94664; 99285; J2765; J7620

== ENCOUNTER 2019-10-09 11:31 | Emergency (ER) | payer MEDICARE ==
[~2019-10-09] VITALS: Ht 190.5 cm; Wt 97.5 kg
[~2019-10-09 11:31] MED LIST changes: +ACETAMINOPHEN325 M1 ORAL; +ALBUTEROL SULF8.5 GM INH; +CIPROFLOXACIN500 M2 ORAL; +ELIQUIS5 MG PO; +FLONASE1 SPRAYS NASAL; +LATANOPROST2.5 ML BOTH EYES; +LEVAQUIN500 MG ORAL; +LOSARTAN POTAS100 MG ORAL; +LOSARTAN POTASS50 MG ORAL; +PANTOPRAZOLE SO40 MG ORAL; +TERBINAFINE HC250 MG PO; +ZANTAC150 MG ORAL
[2019-10-09 11:44] VITALS: BP 130/80
--- NOTE | 2019-10-09 11:44 | NUR ---
ED Nurse Note: PT walked in to ED for C/O pain to left leg x 1 week. pt reports having Hx of DVT/ blood clots and states the pain feels similar. pt is currently on eliquis ( unk dose)
--- NOTE | 2019-10-09 12:46 | Emergency Room Report ---
History of Present Illness General Chief Complaint: Pain Source: Patient Present Illness HPI 74-year-old male with no significant past medical history other than last DVT 1 year ago currently on Eliquis and under the care of primary doctor here complaining of 1-1/2-week of left leg pain however no edema noted. Denies any chest pain shortness of breath. Denies any prolonged sitting, recent travel, tobacco smoke. Denies any cancer history. Sitting comfortably with stable vital signs. Denies any pleuritic chest pain. Reports that takes Eliquis twice daily. Is up-to-date with his visits with primary doctor and her latest blood draw done a few weeks ago. His primary doctor is . Rates the pain 7 out of 10 without radiation. Denies any tingling or numbness. Denies any fall or injury. COVID-19 risk:Travel to affect: No Has patient experienced morales: No Allergies: Coded Allergies: No Known Allergies (Unverified , 09/11/17) Patient History Past Medical History: see triage record Past Surgical History: none Pertinent Family History: none Immunizations: UTD Reviewed Nursing Documentation: PMH: Agreed; PSxH: Agreed Nursing Documentation-PMH Past Medical History: No History, Except For Hx Cardiac Problems: Yes Hx Hypertension: Yes Hx Asthma: Yes Hx Cancer: No Hx Gastrointestinal Problems: No Hx Neurological Problems: No Review of Systems All Other Systems: negative except mentioned in HPI Physical Exam Vital Signs Date Time Temp Pulse Resp B/P (MAP) Pulse Ox O2 Delivery O2 Flow Rate FiO2 10/09/19 11:38 98.4 70 17 127/81 (96) 95 Room Air Sp02 EP Interpretation: reviewed, normal General Appearance: no apparent distress, alert, GCS 15, non-toxic Head: normocephalic, atraumatic Eyes: bilateral eye normal inspection, bilateral eye PERRL ENT: hearing grossly normal, normal pharynx, no angioedema, normal voice Neck: full range of motion, supple/symm/no masses Respiratory: chest non-tender, lungs clear, normal breath sounds, no rhonchi, no wheezing, speaking full sentences Cardiovascular #1: regular rate, rhythm, no edema, no JVD, no murmur, normal capillary refill Cardiovascular #2: 2+ femoral (R), 2+ femoral (L), 2+ dorsalis pedis (R), 2+ dorsalis pedis (L) Gastrointestinal: non tender, soft Rectal: deferred Genitourinary: no CVA tenderness Musculoskeletal: back normal, digits/nails normal, no calf tenderness, pelvis stable, gait/station normal, Nydia's Sign negative Neurologic: alert, motor strength/tone normal, oriented x3, sensory intact, responsive, speech normal Psychiatric: judgement/insight normal, memory normal, mood/affect normal, no suicidal/homicidal ideation Skin: no rash Lymphatic: no adenopathy Medical Decision Making PA Attestation All my diagnosis and treatment plans were reviewed ad discussed with my supervising physician Dr. Vizcarra Diagnostic Impression: Primary Impression: History of DVT (deep vein thrombosis) ER Course 74-year-old male with no significant past medical history other than last DVT 1 year ago currently on Eliquis and under the care of primary doctor here complaining of 1-1/2-week of left leg pain however no edema noted. Denies any chest pain shortness of breath. Denies any prolonged sitting, recent travel, tobacco smoke. Denies any cancer history. Sitting comfortably with stable vital signs. Denies any pleuritic chest pain. Reports that takes Eliquis twice daily. Is up-to-date with his visits with primary doctor and her latest blood draw done a few weeks ago. His primary doctor is . Rates the pain 7 out of 10 without radiation. Denies any tingling or numbness. Denies any fall or injury. Ddx considered but are not limited to : Cellulitis, DVT, leg edema, muscle cramps Vital signs: are WNL, pt. is afebrile H&PE are most consistent with: History of DVT, muscle cramps ORDERS: Venous duplex ultrasound of left lower extremity, ED INTERVENTIONS: None required at this time. DISCHARGE: At this time pt. is stable for d/c to home. Will provide printed patient care instructions, and any necessary prescriptions. Care plan and follow up instructions have been discussed with the patient prior to discharge. Follow with primary doctor, take Eliquis as been prescribed, if worsening symptoms return to emergency room. At this time no further imaging needed as patient does not have any PE symptoms. CT/MRI/US Diagnostic Results CT/MRI/US Diagnostic Results : Imaging Test Ordered: Left lower extremity venous duplex ultrasound Impression Negative for DVT Last Vital Signs Date Time Temp Pulse Resp B/P (MAP) Pulse Ox O2 Delivery O2 Flow Rate FiO2 10/09/19 11:44 98.4 84 17 130/80 96 Room Air Disposition: HOME, SELF-CARE Condition: Stable Patient Instructions: Edema, [id number] Additional Instructions: Follow-up with your primary doctor regarding dosing of Eliquis, at this time you do not have any new onset of DVT however do follow-up with your regular doctor. If worsening symptoms return to the emergency room. Seymour Zhong Oct 09, 2019 12:46
[2019-10-09 13:05] VITALS: BP 130/80
--- NOTE | 2019-10-09 13:05 | NUR ---
ER DISCHARGE NOTE: Patient is cleared to be discharged per ERMD, pt is aox4, on room air, with stable vital signs. pt was given dc and prescription instructions, pt was able to verbalize understanding, pt is able to ambulate with steady gait. pt took all belongings.
--- NOTE | 2019-10-09 13:24 | Diagnostic Imaging Report ---
Indication: Left leg edema and pain, history of right leg deep venous thrombosis Technique: Grayscale and duplex images of the left lower extremity veins Comparison: None Findings: On the left, grayscale and duplex images demonstrate no evidence of intraluminal thrombus. Normal phasic Doppler waveforms, demonstrating normal augmentation response and no evidence of valvular insufficiency. Greater saphenous vein(s) and tibial veins are patent. Normal compressibility. Impression: Negative for evidence of lower extremity deep venous thrombosis on the left
== END 2019-10-09 13:10 | disposition home or self-care (01) ==
LOC: EMR 13:00
DX: M79.605 Pain in left leg (principal); Z86.718 Personal history of other venous thrombosis and embolism; Z79.01 Long term (current) use of anticoagulants; I10 Essential (primary) hypertension; J45.909 Unspecified asthma, uncomplicated
CPT/HCPCS: 93971; 99284

== ENCOUNTER → 2020-04-14 | Outpatient (CLI) | payer MEDICARE ==
--- NOTE | 2020-04-14 17:39 | Diagnostic Imaging Report ---
Indication: Hip pain Technique: PA view of the pelvis; frontal and frog lateral views of the right hip. Comparison: None Findings: Bone mineralization within normal limits. No acute fracture or dislocation is identified. There are mild degenerative changes with joint space narrowing of the bilateral hips and some mild subchondral sclerosis. Symphysis pubis is maintained. There are enthesopathic changes in the pelvic bones. No radiopaque foreign body. IMPRESSION: Overall mild degenerative changes. No evidence of acute fracture or dislocation. If there is persistent hip pain recommend further evaluation with MRI.
== END | disposition home or self-care (01) ==
LOC: RAD 15:18
DX: M25.551 Pain in right hip (principal)